=== PATIENT | female | born 1955 | race Caucasian/White ===

== ENCOUNTER → 2016-09-14 | Outpatient (CLI) | payer BC ==
[~2016-09-14] MED LIST: AMLO5TAB2; ASCO500C14; BYETTA; DICL75TA2 PO; ENOX100D9; FERR-57; FLT05NA16; LORA1TAB16; NAPR-243 PO; OXYC-12; PRED20TA PO; TRIA1TAB3 PO; WRF1T
== END ==
LOC: LAB 14:23
PROVIDERS: ATTEND Nurse Practitioner Family
DX: N30.01 Acute cystitis with hematuria (principal)
CPT/HCPCS: 87077; 87088; 87186

== ENCOUNTER 2016-12-28 04:48 | Emergency (ER) | payer BC ==
[~2016-12-28] VITALS: Ht 170.2 cm; Wt 90.7 kg
[2016-12-28 05:28] LABS: BASOPHILS # (AUTO) 0.1 10^3/uL (0.0-0.1); BASOPHILS % (AUTO) 1 % (0-10); EOSINOPHILS # (AUTO) 0.4 10^3/uL (0.0-0.3); EOSINOPHILS % (AUTO) 5 % (0-10); LYMPHOCYTES # (AUTO) 1.9 X 10^3 (1.0-4.0); LYMPHOCYTES % (AUTO) 27 % (12-44); MEAN CORPUSCULAR HEMOGLOBIN 26 PG (25-34); MEAN CORPUSCULAR HGB CONC 33 G/DL (32-36); MEAN CORPUSCULAR VOLUME 81 FL (80-99); MEAN PLATELET VOLUME 10.7 FL (7.4-10.4); MONOCYTES # (AUTO) 0.6 X 10^3 (0.0-1.0); MONOCYTES % (AUTO) 8 % (0-12); NEUTROPHILS # (AUTO) 4.1 X 10^3 (1.8-7.8); NEUTROPHILS % (AUTO) 58 % (42-75); PLATELET COUNT 242 10^3/uL (130-400); RED BLOOD COUNT 5.24 10^6/uL (4.35-5.85); RED CELL DISTRIBUTION WIDTH 14.8 % (10.0-14.5); WHITE BLOOD COUNT 7.1 10^3/uL (4.3-11.0)
[2016-12-28 05:48] LABS: ANION GAP 13 MMOL/L (5-14); BLOOD UREA NITROGEN 16 MG/DL (7-18); BUN/CREATININE RATIO 20; CALCIUM 9.1 MG/DL (8.5-10.1); CARBON DIOXIDE 19 MMOL/L (21-32); CHLORIDE 110 MMOL/L (98-107); GFR ESTIMATED > 60; GLUCOSE 109 MG/DL (70-105); MAGNESIUM 2.3 MG/DL (1.8-2.4); SODIUM 142 MMOL/L (135-145)
[2016-12-28 06:09] LABS: TROPONIN I < 0.30 NG/ML (<0.30)
--- NOTE | 2016-12-28 06:10 | ED Cardiac General ---
History of Present Illness General Chief Complaint: Cardiac/General Problems Stated Complaint: HIGH HEART RATE Nursing Triage Note: Patient reports heart beating fast since Friday a.m. Brought to ED 7 and heart rate NSR 78-82 on monitor. No chest pain reported. Pt reports increased stress. Source: patient Exam Limitations: no limitations History of Present Illness Time seen by provider: 04:49 Initial Comments This 61-year-old woman presents to the emergency room with complaints of rapid heart rate that started yesterday. She denies pain, nausea, lightheadedness, shortness of breath, etc. She denies any use of stimulants, tobacco, or illicit substances. Heart rate is noted to be in the 80s and sinus on the monitor. 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 Allergies and Home Medications Allergies Coded Allergies: No Known Drug Allergies (Unverified , 09/09/09) Home Medications Sulfamethoxazole/Trimethoprim 1 Each Tablet, 1 EACH PO BID, #14 Prescribed by: LAYLA WALTON on 12/28/16 0643 Review of Systems Constitutional: no symptoms reported EENTM: No Symptoms Reported Respiratory: No Symptoms Reported Cardiovascular: See HPI Gastrointestinal: No Symptoms Reported Genitourinary: No Symptoms Reported Musculoskeletal: no symptoms reported Skin: no symptoms reported Psychiatric/Neurological: No Symptoms Reported Endocrine: No Symptoms Reported Hematologic/Lymphatic: No Symptoms Reported Past Toxmiig-Eptoee-Nstpzv Hx Patient Social History Alcohol Use: Denies Use Recreational Drug Use: No Smoking Status: Never a Smoker Recent Foreign Travel: No Contact w/Someone Who Travel: No Recent Infectious Disease Expo: No Recent Hopitalizations: Yes Seasonal Allergies Seasonal Allergies: No Surgeries History of Surgeries: Yes (, GALLBLADDER REMOVED/VENA CAVA FILTER) Surgeries: Section, Gallbladder, Hysterectomy Respiratory History of Respiratory Disorde: Yes Respiratory Disorders: Pulmonary Embolism Cardiovascular History of Cardiac Disorders: Yes Cardiac Disorders: Deep Vein Thrombosis, Hypertension Neurological History of Neurological Disord: No Reproductive System Hx Reproductive Disorders: No Genitourinary History of Genitourinary Disor: No Gastrointestinal History of Gastrointestinal Di: No Musculoskeletal History of Musculoskeletal Dis: Yes Musculoskeletal Disorders: Osteoporosis Endocrine History of Endocrine Disorders: No HEENT History of HEENT Disorders: No Cancer History of Cancer: No Psychosocial History of Psychiatric Problem: No Integumentary History of Skin or Integumenta: No Blood Transfusions History of Blood Disorders: No Family Medical History Significant Family History: No Pertinent Family Hx Physical Exam Vital Signs Vital Sign - Last 12Hours 12/28/16 12/28/16 04:52 07:18 Temp 96.9 Pulse 82 Resp 16 B/P (MAP) 166/93 Pulse Ox 97 O2 Delivery Room Air Capillary Refill : Less Than 3 Seconds General Appearance: No Apparent Distress, WD/WN HEENT: PERRL/EOMI, Normal ENT Inspection, Pharynx Normal Neck: Normal Inspection Respiratory: Lungs Clear, Normal Breath Sounds, No Accessory Muscle Use, No Respiratory Distress Cardiovascular: Regular Rate, Rhythm, No Edema, No Murmur Gastrointestinal: Normal Bowel Sounds, Non Tender, Soft Extremity: Normal Inspection, Non Tender, No Calf Tenderness, No Pedal Edema, Other (Negative Isma) Neurologic/Psychiatric: Alert, Oriented x3, No Motor/Sensory Deficits, Normal Mood/Affect, hole digger II-XII Norm as Tested Skin: Normal Color, Warm/Dry Progress/Results/Core Measures Results/Orders Lab Results Laboratory Tests Test 12/28/16 05:18 12/28/16 06:05 Range/Units White Blood Count 7.1 4.3-11.0 10^3/uL Red Blood Count 5.24 4.35-5.85 10^6/uL Hemoglobin 13.7 11.5-16.0 G/DL Hematocrit 42 35-52 % Mean Corpuscular Volume 81 80-99 FL Mean Corpuscular Hemoglobin 26 25-34 PG Mean Corpuscular Hemoglobin Concent 33 32-36 G/DL Red Cell Distribution Width 14.8 H 10.0-14.5 % Platelet Count 242 130-400 10^3/uL Mean Platelet Volume 10.7 H 7.4-10.4 FL Neutrophils (%) (Auto) 58 42-75 % Lymphocytes (%) (Auto) 27 12-44 % Monocytes (%) (Auto) 8 0-12 % Eosinophils (%) (Auto) 5 0-10 % Basophils (%) (Auto) 1 0-10 % Neutrophils # (Auto) 4.1 1.8-7.8 X 10^3 Lymphocytes # (Auto) 1.9 1.0-4.0 X 10^3 Monocytes # (Auto) 0.6 0.0-1.0 X 10^3 Eosinophils # (Auto) 0.4 H 0.0-0.3 10^3/uL Basophils # (Auto) 0.1 0.0-0.1 10^3/uL Sodium Level 142 135-145 MMOL/L Potassium Level 4.0 3.6-5.0 MMOL/L Chloride Level 110 H 98-107 MMOL/L Carbon Dioxide Level 19 L 21-32 MMOL/L Anion Gap 13 5-14 MMOL/L Blood Urea Nitrogen 16 7-18 MG/DL Creatinine 0.80 0.60-1.30 MG/DL Estimat Glomerular Filtration Rate > 60 BUN/Creatinine Ratio 20 Glucose Level 109 H 70-105 MG/DL Calcium Level 9.1 8.5-10.1 MG/DL Magnesium Level 2.3 1.8-2.4 MG/DL Troponin I < 0.30 <0.30 NG/ML TSH [place] Testing 3.11 0.35-4.94 UIU/ML Urine Color YELLOW Urine Clarity SLIGHTLY CLOUDY Urine pH 6 5-9 Urine Specific [place] 1.015 L 1.016-1.022 Urine Protein NEGATIVE NEGATIVE Urine Glucose (UA) NEGATIVE NEGATIVE Urine Ketones NEGATIVE NEGATIVE Urine Nitrite POSITIVE H NEGATIVE Urine Bilirubin NEGATIVE NEGATIVE Urine Urobilinogen NORMAL NORMAL MG/DL Urine Leukocyte Esterase 2+ H NEGATIVE Urine RBC (Auto) 2+ H NEGATIVE Urine RBC NONE /HPF Urine WBC 25-50 H /HPF Urine Squamous Epithelial Cells 2-5 /HPF Urine Crystals NONE /LPF Urine Bacteria LARGE H /HPF Urine Casts NONE /LPF Urine Mucus NEGATIVE /LPF Urine Culture Indicated YES Micro Results Microbiology 12/28/16 Urine Culture - Preliminary, Resulted Gram Negative Scooter My Orders Orders - LAYLA ZAPATA MD Basic Metabolic Panel (12/28/16 05:03) Cbc With Automated Diff (12/28/16 05:03) Magnesium (12/28/16 05:03) Thyroid Analyzer (12/28/16 05:03) Troponin I (12/28/16 05:03) Ua Culture If Indicated (12/28/16 05:03) Chest Pa/Lat (2 View) (12/28/16 05:03) Saline Lock/Iv-Start (12/28/16 05:03) Ekg Tracing (12/28/16 05:03) Monitor-Rhythm Ecg Trace Only (12/28/16 05:03) Urine Culture (12/28/16 06:05) Ceftriaxone Injection (Rocephin Injectio (12/28/16 06:45) Vital Signs/I&O Vital Sign - Last 12Hours 12/28/16 12/28/16 04:52 07:18 Temp 96.9 96.9 Pulse 82 82 Resp 16 16 B/P (MAP) 166/93 Pulse Ox 97 O2 Delivery Room Air Room Air Blood Pressure Mean: 117 Progress Note : Progress Note No evidence of tachycardia or arrhythmia was found on EKG, telemetry, or exam. Patient was found to have a significant urinary tract infection by urinalysis. A gram of Rocephin was administered for initial therapy. ECG Initial ECG Impression Date: Dec 28, 2016 Initial ECG Impression Time: 05:06 Initial ECG Rate: 72 Initial ECG Rhythm: Normal Sinus Initial ECG Intervals: Normal Initial ECG Impression: Normal Comment Normal sinus rhythm no ST elevation or depression. No abnormal intervals or axis deviation. Diagnostic Imaging Diagonstic Imaging: Xray Plain Films/CT/US/NM/MRI: chest Comments Two-view chest x-ray viewed by me. Report not yet available. No acute abnormalities appreciated. Departure Impression Impression: Primary Impression: Urinary tract infection Qualified Codes: N39.0 - Urinary tract infection, site not specified Additional Impression: Palpitations Disposition: 01 HOME, SELF-CARE Condition: Improved Departure-Patient Inst. Decision time for Depature: 06:41 Referrals: DAMI CARVER DO (PCP/Family) Primary Care Physician Patient Instructions: Palpitations (DC), Urinary Tract Infections in Adults Add. Discharge Instructions: Drink plenty of clear liquids. Complete your antibiotics as prescribed. Follow -up with your primary care provider on Friday or Friday to review urine culture results. Ask your primary care provider if he or she feels any further workup is warranted due to your frequent bladder infections. To help prevent future urinary tract infections, drink plenty of clear liquids, wipe front to back, and urinate after intercourse. Return to care if symptoms worsen. All discharge instructions reviewed with patient and/or family. Voiced understanding. Scripts Sulfamethoxazole/Trimethoprim (Bactrim Ds Tablet) 1 Each Tablet 1 EACH PO BID, #14 TAB Prov: LAYLA ZAPATA MD 12/28/16 LAYLA ZAPATA MD Dec 28, 2016 6:10 am
[2016-12-28 06:19] LABS: BILIRUBIN,URINE NEGATIVE (NEGATIVE); KETONES,URINE NEGATIVE (NEGATIVE); LEUKOCYTE ESTERASE ,URINE 2+ (NEGATIVE); NITRITE,URINE POSITIVE (NEGATIVE); PH,URINE 6 (5-9); PROTEIN,URINE NEGATIVE (NEGATIVE); UROBILINOGEN,URINE NORMAL (NORMAL)
[2016-12-28 06:29] LABS: WBC,URINE 25-50 /HPF
[2016-12-28] MEDS ORDERED: SULF1TAB35 PO (06:43)
[2016-12-28] MEDS ORDERED: cefTRIAXone INJECTION 1,000 MG in NS (IVPB) 50 ML IV ONE (06:45)
--- NOTE | 2016-12-28 07:04 | Diagnostic Imaging Report ---
INDICATION: Heart palpitations for 2 days EXAMINATION: PA and lateral views of the chest. FINDINGS: The heart size and vascularity are normal. Lungs are clear. There is no effusion. There is no acute bony abnormality. IMPRESSION: No acute abnormality is seen. There is no change from 07/15/11. Dictated by: Dictated on workstation # [id number]
[2016-12-28 07:18] VITALS: BP 155/89
--- OUTSIDE RECORDS SUMMARY | 2016-12-30 09:07 | XMS REPORT | Clinical Summary ---
Author Author [facility] Organization [facility] Address Unknown Phone Unavailable Care Team Providers Care Clinical Neuropsychologist Name Role Phone PCP Unavailable Source Comments Some departments are not documenting in the electronic medical record. If you do not see the information that you expected, contact Release of Information in the Health Information Management department at [phone] for further assistance in locating additional records.[facility] Allergies No Known Allergies Current Medications Prescription Sig. Disp. Refills Start End Date Status Date oxycodone/acetaminophen Take 1-2 Tabs by mouth 30 Tab 1 12/16/19 Active (PERCOCET) 5/325 mg Every 4-6 Hours as needed 10 tablet for Pain. warfarin (COUMADIN) 1 mg Take 7 Tabs by mouth At 60 Tab 1 12/16/19 Active tablet Bedtime Daily. Dose: 7 mg 10 po daily. Indication: b/l PE/DVTs 08/2009. enoxaparin (LOVENOX) 100 Inject 1 mL into area(s) 30 Syringe 6 Active mg Syrg as directed Twice Daily. 10 ferrous sulfate 325 mg Take 1 Tab by mouth 270 Tab 1 12/16/19 Active (65 mg Iron) tablet Daily. 10 docusate (COLACE) 100 mg Take 1 Cap by mouth Every 60 Cap 1 12/16/19 Active capsule 12 Hours as needed for 10 Constipation. warfarin (COUMADIN) 6 mg Take 1 Tab by mouth 30 Tab 3 12/16/19 Active tablet Daily. 10 warfarin (COUMADIN) 1 mg Take 1 Tab by mouth 30 Tab 3 12/16/19 Active tablet Daily. 10 Active Problems Problem Noted Date DVT (deep venous thrombosis) (HCC) 09/04/2009 Anemia 09/04/2009 Uterine fibroid 09/04/2009 Pulmonary embolism (HCC) 08/27/2009 Menorrhagia 08/27/2009 Anemia associated with acute blood loss 08/27/2009 Family History Medical History Relation Name Comments Cancer Father Rubin Prasad Diabetes Mother Rosa Prasad Hypertension Mother Rosa Prasad Relation Name Status Comments Father Rubin Prasad Alive Mother Rosa Prasad Alive Social History Tobacco Use Types Packs/Day Years Used Date Never Smoker Alcohol Use Drinks/Week oz/Week Comments No Sex Assigned at Date Recorded Not on file Last Filed Vital Signs Vital Sign Reading Time Taken Blood Pressure 157/83 12/15/2009 12:00 PM CDT Pulse 83 12/15/2009 12:00 PM CDT Temperature 37.1 C (98.7 F) 12/15/2009 12:00 PM CDT Respiratory Rate - - Oxygen Saturation 98% 12/15/2009 12:00 PM CDT Inhaled Oxygen - - Concentration Weight 106.5 kg (234 lb 12.8 oz) 12/15/2009 4:25 AM CDT Height 170.2 cm (5' 7") 12/13/2009 2:00 PM CDT Body Mass Index 36.77 12/15/2009 4:25 AM CDT Plan of Treatment Health Maintenance Due Date Last Done Comments HEPATITIS C SCREENING 1957 PHYSICAL (COMPREHENSIVE) 1964 EXAM PERTUSSIS VACCINE 1968 TETANUS VACCINE 1974 CERVICAL CANCER SCREENING 09/15/1987 BREAST CANCER SCREENING 1997 COLORECTAL CANCER 09/15/2007 SCREENING INFLUENZA VACCINE 01/03/2017 Results Not on filefrom Last 3 Months
--- OUTSIDE RECORDS SUMMARY | 2016-12-30 09:11 | XMS REPORT | Clinical Summary ---
Author Author User, [facility] Address Unknown Phone Allergies, Adverse Reactions, Alerts Allergy Name Reaction Description Start Date Severity Status Provider No Known Allergies Vince Quinten Conditions or Problems Problem Name Problem Code Onset Date Status Entry Date Provider Comment Standard Description Annotate ANEMIA NOS 285.9 Resolved Judi Miles Anemia, unspecified COUMADIN THERAPY V58.61 Resolved Judi Miles Long-term (current) use of anticoagulants PE 415.19 Active Judi Miles Other pulmonary embolism and infarction DVT 451.19 Active Judi Miles Phlebitis and thrombophlebitis of other deep vessels of lower extremities HYPERTENSION 401.1 Active Judi Miles Benign essential hypertension MUSCLE PAIN 729.1 Resolved Judi Miles Myalgia and myositis, unspecified SINUSITIS, SPHENOIDAL, ACUTE 461.3 Resolved Judi Miles Acute sphenoidal sinusitis EPISTAXIS 784.7 Resolved Judi Miles Epistaxis LEG PAIN, BILATERAL 729.5 Resolved Judi iMles Pain in limb ANEMIA, IRON DEFICIENCY 280.9 Active Judi Miles Iron deficiency anemia, unspecified FACTOR VIII DISORDER, 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 HEALTH SCREENING V70.0 Resolved Judi Miles Routine general medical examination at a health care facility PNEUMONIA 486 Resolved Judi Miles Pneumonia, organism unspecified NEUROPATHY, IDIOPATHIC PERIPHERAL 356.9 Active Judi Miles Unspecified idiopathic peripheral neuropathy PAIN IN THORACIC SPINE 724.1 Resolved Judi Miles Pain in thoracic spine WHEEZING 786.07 Resolved Judi Miles Wheezing EASY BRUISABILITY 924.9 Resolved Judi Miles Contusion of unspecified site CHEST PAIN, ATYPICAL 786.59 Resolved Judi Miles Other chest pain BRONCHITIS 490 Resolved Judi Miles Bronchitis, not specified as acute or chronic SINUSITIS, SPHENOIDAL, ACUTE 461.3 Resolved Judi Miles Acute sphenoidal sinusitis WHEEZING 786.07 Resolved Judi Miles Wheezing WEIGHT GAIN, ABNORMAL 783.1 Active Judi Miles Abnormal weight gain HYPERGLYCEMIA, MILD 790.6 Active Denisse Alvares Other abnormal blood chemistry SINUSITIS, SPHENOIDAL, ACUTE 461.3 Resolved Judi Miles Acute sphenoidal sinusitis Medication List Medication Instructions Start Date Stop Date Generic Name NDC Status Provider Patient Instruction CELEBREX 200 MG CAPS 1 po qd CELECOXIB 19060444209 No Longer Active Judi Miles NORVASC 5 MG TAB 1 PO QD AMLODIPINE BESYLATE 36211392255 No Longer Active Judi Miles BYETTA 10 MCG PEN 10 MCG/0.04ML SOPN 10mcg injection BID EXENATIDE 69971437234 Active Judi Miles CAT PEN NEEDLES 31G X 8 [place] [facility] [place] INSULIN PEN NEEDLE 68384524150 Active Judijackeline Miles PHENTERMINE HCL 37.5 MG CAPS 1 PO Daily PHENTERMINE HCL 43536287269 No Longer Active Judi Miles IMITREX 50 MG TAB 1 PO at first sign of head aches SUMATRIPTAN SUCCINATE 12136660570 No Longer Active Judijackeline Miles FLUTICASONE PROPIONATE 50 MCG/ACT SUSP 2 puffs each nostril daily FLUTICASONE PROPIONATE 60027772492 Active Judijackeline Miles CONTRAVE 8-90 MG [id number] 1 PO DAILY X ONE WEEK, THEN ONE PO BID NALTREXONE-BUPROPION HCL 38906894740 No Longer Active Judi Miles LASIX 20 MG TAB 1 PO daily prn swelling FUROSEMIDE 31854840129 Active Denisse Alvares FLUTICASONE PROPIONATE 50 MCG/ACT SUSP 2 puffs each nostril daily FLUTICASONE PROPIONATE 85374405263 No Longer Active Judi Miles HYDROXYZINE HCL 25 MG TAB 1 PO TID prn nasal drainage. HYDROXYZINE HCL 03391173069 No Longer Active Judi Miles PREDNISONE 10 MG TAB 1 PO BID for 5 days PREDNISONE 55654080479 No Longer Active Judi Miles ATROVENT 0.06 % SOLN 2 puffs each nostril TID prn runny nose 2014 IPRATROPIUM BROMIDE 60218688885 No Longer Active Judi COLLADO'S NASAL SPRAY (DEXAMETHASONE, GENTAMICIN, SALINE) 2 puffs each nostril TID for [address] COLLADO'Vince NASAL SPRAY ( DEXAMETHASONE, GENTAMICIN, SALINE) No Longer Active Judi Miles CEFDINIR 300 MG CAPS 1 PO BID CEFDINIR 84525143918 No Longer Active Judi Miles CEFDINIR 300 MG CAPS 1 PO BID CEFDINIR 40675107283 No Longer Active Laura Hamilton CEFDINIR 300 MG CAPS 1 PO BID CEFDINIR 76267618718 No Longer Active Judijackeline Miles PREDNISONE 20 MG TAB 2 pills at once for 2 days then 1 pill daily for 2 days PREDNISONE 51826980046 No Longer Active Judi Jennifer Miles PROAIR HFA 108 (90 BASE) MCG/ACT AERS 2 puff Q4 hrs prn wheezing ALBUTEROL SULFATE 20904591575 Active Judi Jennifer Miles SYMBICORT 160-4.5 MCG/ACT AERO 2 puffs BID BUDESONIDE- FORMOTEROL FUMARATE 41396976115 Active Judi Jennifer Miles CYMBALTA 60 MG CPEP 1 PO daily DULOXETINE HCL 58443810134 No Longer Active Judijackeline Miles BACTRIM DS 800-160 MG TAB 1 PO BID TRIMETHOPRIM- SULFAMETHOXAZOLE 28414854544 No Longer Active Denisse Alvares VENTOLIN HFA 108 (90 BASE) MCG/ACT AERS 2 puffs Q4hrs prn wheezing ALBUTEROL SULFATE 57749865928 No Longer Active Judi Jennifer Miles SYMBICORT 80-4.5 MCG/ACT AERO 2 puffs BID BUDESONIDE- FORMOTEROL FUMARATE 22089108247 No Longer Active Judijackeline Miles LORTAB 5 5-500 MG TABS 1 to 2 PO Q6hrs prn ACETAMINOPHEN-HYDROCODONE 77670489019 No Longer Active Judijackeline Miles VOLTAREN 75 MG EC TAB 1 PO BID DICLOFENAC SODIUM No Longer Active Judi Jennifer Miles FLEXERIL 10 MG TAB 1 PO TID prn CYCLOBENZAPRINE HCL 06882229624 No Longer Active Judi Jennifer Miles CELEXA 40 MG TABS 1 PO Daily CITALOPRAM HYDROBROMIDE 58791465429 No Longer Active Judi Jennifer Miles MIDRIN 325-100-65 MG CAP 1 PO prn Migraine headaches [id number] 50702406182 No Longer Active Judi Jennifer Miles MULTIVITAMINS TABS 1 PO QD MULTIPLE VITAMIN 37522056151 No Longer Active Judi Jennifer Miles FERROUS SULFATE 325 (65 FE) MG TABS 1 PO Daily FERROUS SULFATE 49426012944 No Longer Active Judi Jennifer Miles DYAZIDE 37.5-25 MG CAP 1 PO Daily TRIAMTERENE-HCTZ 54802306002 No Longer Active Judi Jennifer Miles NORVASC 5 MG TAB 1 PO QD AMLODIPINE BESYLATE 91547030579 No Longer Active Judi Jennifer Miles PREDNISONE 20 MG TAB 2 pills at once for 3 days then 1 pill daily for 3 days PREDNISONE 38171751264 No Longer Active Lacy Smith LEVAQUIN 500 MG TAB 1 PO QD LEVOFLOXACIN 75400633009 No Longer Active Lacy Smith VOLTAREN 75 MG EC TAB 1 PO BID DICLOFENAC SODIUM No Longer Active Judi Jennifer Miles LORTAB 5 5-500 MG TABS 1 to 2 PO Q6hrs prn ACETAMINOPHEN-HYDROCODONE 20494341013 No Longer Active Judi Jennifer Miles PROZAC 40 MG CAPS 1 po daily FLUOXETINE HCL 57306897561 No Longer Active Judi Jennifer Miles LOVENOX 100 MG/ML SOLN 1 injection BID ON HOLD ENOXAPARIN SODIUM 17160873194 No Longer Active Judi Jennifer Miles COUMADIN 1 MG TABS 9 tabs po at HS WARFARIN SODIUM 46140411459 No Longer Active Judi Miles SUDAFED 30 MG TAB 1 PO BID PSEUDOEPHEDRINE HCL 58782822369 No Longer Active Judi COPE NASAL SPRAY (DEXAMETHASONE, GENTAMICIN, SALINE) 2 puffs each nostril TID for [address] COPE NASAL SPRAY ( DEXAMETHASONE, GENTAMICIN, SALINE) No Longer Active Judi Miles CEFTIN 500 MG TABS 1 PO BID for 2 weeks CEFUROXIME AXETIL 07286953414 No Longer Active Judi Miles CEFTIN 500 MG TABS 1 PO BID CEFUROXIME AXETIL 09813085719 No Longer Active Judi COPE NASAL SPRAY (DEXAMETHASONE, GENTAMICIN, SALINE) 2 puffs each nostril TID for [address] COPE NASAL SPRAY ( DEXAMETHASONE, GENTAMICIN, SALINE) No Longer Active Judi Miles AUGMENTIN 875-125 MG TAB 1 PO BID AMOXICILLIN-POT CLAVULANATE 23818104286 No Longer Active Judi Miles Vital Signs Date Name Value Unit Range Description blood pressure, diastolic - 8462-4 78 mm[Hg] BP carranza blood pressure, systolic - 8480-6 140 mm[Hg] BP sys pulse rate E&M - 8867-4 66 /min Heart rate respiratory rate E&M - 9279-1 14 /min Resp rate weight E&M - 3141-9 239 [lb_av] Weight Measured blood pressure, diastolic - 8462-4 90 mm[Hg] BP carranza blood pressure, systolic - 8480-6 163 mm[Hg] BP sys pulse rate E&M - 8867-4 80 /min Heart rate respiratory rate E&M - 9279-1 14 /min Resp rate temperature E&M 98.6 [degF] Body temperature weight E&M - 3141-9 235 [lb_av] Weight Measured blood pressure, diastolic - 8462-4 96 mm[Hg] BP carranza blood pressure, systolic - 8480-6 148 mm[Hg] BP sys pulse rate E&M - 8867-4 102 /min Heart rate respiratory rate E&M - 9279-1 14 /min Resp rate temperature E&M 98.6 [degF] Body temperature weight E&M - 3141-9 235 [lb_av] Weight Measured blood pressure, diastolic - 8462-4 83 mm[Hg] BP carranza blood pressure, systolic - 8480-6 135 mm[Hg] BP sys pulse rate E&M - 8867-4 72 /min Heart rate respiratory rate E&M - 9279-1 14 /min Resp rate temperature E&M 98.3 [degF] Body temperature weight E&M - 3141-9 231 [lb_av] Weight Measured blood pressure, diastolic - 8462-4 76 mm[Hg] BP carranza blood pressure, systolic - 8480-6 124 mm[Hg] BP sys pulse rate E&M - 8867-4 78 /min Heart rate respiratory rate E&M - 9279-1 14 /min Resp rate weight E&M - 3141-9 250 [lb_av] Weight Measured blood pressure, diastolic - 8462-4 76 mm[Hg] BP carranza blood pressure, systolic - 8480-6 130 mm[Hg] BP sys pulse rate E&M - 8867-4 70 /min Heart rate respiratory rate E&M - 9279-1 14 /min Resp rate weight E&M - 3141-9 258 [lb_av] Weight Measured blood pressure, diastolic - 8462-4 80 mm[Hg] BP carranza blood pressure, systolic - 8480-6 140 mm[Hg] BP sys pulse rate E&M - 8867-4 78 /min Heart rate respiratory rate E&M - 9279-1 14 /min Resp rate temperature E&M 98.4 [degF] Body temperature weight E&M - 3141-9 260 [lb_av] Weight Measured blood pressure, diastolic - 8462-4 75 mm[Hg] BP carranza blood pressure, systolic - 8480-6 135 mm[Hg] BP sys pulse rate E&M - 8867-4 84 /min Heart rate respiratory rate E&M - 9279-1 14 /min Resp rate temperature E&M 99.3 [degF] Body temperature weight E&M - 3141-9 255 [lb_av] Weight Measured blood pressure, diastolic - 8462-4 80 mm[Hg] BP carranza blood pressure, systolic - 8480-6 140 mm[Hg] BP sys pulse rate E&M - 8867-4 72 /min Heart rate respiratory rate E&M - 9279-1 14 /min Resp rate temperature E&M 98.6 [degF] Body temperature weight E&M - 3141-9 250 [lb_av] Weight Measured blood pressure, diastolic - 8462-4 90 mm[Hg] BP carranza blood pressure, systolic - 8480-6 130 mm[Hg] BP sys height E&M - 8302-2 67 [in_us] Bdy height pulse rate E&M - 8867-4 60 /min Heart rate respiratory rate E&M - 9279-1 14 /min Resp rate temperature E&M 98.6 [degF] Body temperature weight E&M - 3141-9 250 [lb_av] Weight Measured blood pressure, diastolic - 8462-4 80 mm[Hg] BP carranza blood pressure, systolic - 8480-6 160 mm[Hg] BP sys pulse rate E&M - 8867-4 80 /min Heart rate respiratory rate E&M - 9279-1 14 /min Resp rate temperature E&M 98.6 [degF] Body temperature weight E&M - 3141-9 250 [lb_av] Weight Measured Diagnostic Results Date Name Value Unit Range Description Clinical Lists Update: CBC,CMP,CHOL,TRIG,HGA1C - Chemistry Estimated Glomerular Filtration Rate (calc) >60 mL/min/1.73m2 albumin, serum 4.0 g/dL sodium, serum 142 mmol/L triglyceride, serum, fasting 100 mg/dL bilirubin, serum, total 0.6 mg/dL alanine aminotransferase (SGPT), serum 17 U/L aspartate aminotransferase (SGOT), serum 17 U/L protein, total, serum 7.8 g/dL potassium, serum 4.2 mmol/L hemoglobin A1C, blood, as % of total hemoglobin 6.2 % creatinine, serum 0.85 mg/dL carbon dioxide, venous blood 25 mmol/L cholesterol, serum 196 mg/dL chloride, serum 109 mmol/L calcium, serum 9.0 mg/dL urea nitrogen, blood 14 mg/dL alkaline phosphatase, serum 128 U/L glucose, plasma fasting 100 mg/dL Clinical Lists Update: CBC,CMP,CHOL,TRIG,HGA1C - Hematology hemoglobin, blood 14.7 g/dL hematocrit, blood 45 % platelet count 273 10*3/mm3 erythrocyte (RBC) count 5.64 10*6/mm3 leukocyte count, blood 6.0 10*3/mm3 mean corpuscular volume, RBC 79 fL red blood cell distribution width 14.4 % Clinical Lists Update: CBC,CMP,FLP,TSH,HgA1c,PT,INR - Chemistry aspartate aminotransferase (SGOT), serum 20 U/L Estimated Glomerular Filtration Rate (calc) >60 mL/min/1.73m2 potassium, serum 3.8 mmol/L LDL cholesterol, serum 150 mg/dL thyroid stimulating hormone, serum 2.60 u[iU]/mL hemoglobin A1C, blood, as % of total hemoglobin 6.4 % HDL cholesterol, serum 45 mg/dL creatinine, serum 0.78 mg/dL carbon dioxide, venous blood 25 mmol/L cholesterol, serum 222 mg/dL chloride, serum 105 mmol/L calcium, serum 9.2 mg/dL urea nitrogen, blood 18 mg/dL alkaline phosphatase, serum 127 U/L albumin, serum 4.2 g/dL protein, total, serum 7.3 g/dL glucose, plasma fasting 92 mg/dL alanine aminotransferase (SGPT), serum 26 U/L bilirubin, serum, total 0.5 mg/dL triglyceride, serum, fasting 202 mg/dL sodium, serum 140 mmol/L very low density lipoproteins 40 mg/dL Clinical Lists Update: CBC,CMP,FLP,TSH,HgA1c,PT,INR - Coagulation prothrombin time (patient) 12.1 s international normalized ratio (INR) 0.9 Clinical Lists Update: CBC,CMP,FLP,TSH,HgA1c,PT,INR - Hematology red blood cell distribution width 15.0 % mean corpuscular volume, RBC 79 fL leukocyte count, blood 7.3 10*3/mm3 erythrocyte (RBC) count 5.31 10*6/mm3 platelet count 276 10*3/mm3 hemoglobin, blood 13.9 g/dL hematocrit, blood 42 % erythrocyte sedimentation rate 10 mm/h Clinical Lists Update: UA - Urinalysis bacteria, urine microscopy large protein, urine, semiquantitative (dipstick) neg epithelial cells, urine 5-10 /[LPF] mucus on urinalysis small blood in urine (hemoglobin) by dipstick 1+ RBC urine by microscopy none WBC urine on microscopy 2-5 {Cells}/[HPF] appearance, urine Cloudy Yellow urobilinogen, urine, semiquantitative (dipstick) normal specific gravity, urine 1.020 pH, urine, semiquantitative 6 nitrite, urine, semiquantitative positive ketones, urine, by test strip neg bilirubin, urine neg glucose, urine, semiquantitative neg hyaline casts, urine none /[LPF] Office Visit: Dr Miles's Check Up: Established Patient Visit - Chemistry triglyceride, serum, fasting 140 mg/dL sodium, serum 143 mmol/L very low density lipoproteins 28 mg/dL glucose, plasma fasting 98 mg/dL Estimated Glomerular Filtration Rate (calc) >60 mL/min/1.73m2 bilirubin, serum, total 0.6 mg/dL albumin, serum 4.2 g/dL alkaline phosphatase, serum 129 U/L urea nitrogen, blood 15 mg/dL calcium, serum 9.0 mg/dL chloride, serum 111 mmol/L cholesterol, serum 200 mg/dL alanine aminotransferase (SGPT), serum 11 U/L aspartate aminotransferase (SGOT), serum 16 U/L protein, total, serum 7.3 g/dL potassium, serum 4.1 mmol/L LDL cholesterol, serum 137 mg/dL hemoglobin A1C, blood, as % of total hemoglobin 6.2 % HDL cholesterol, serum 3.9 mg/dL creatinine, serum 0.80 mg/dL carbon dioxide, venous blood 24 mmol/L Office Visit: Dr Miles's Check Up: Established Patient Visit - Hematology leukocyte count, blood 6.8 10*3/mm3 mean corpuscular volume, RBC 80 fL red blood cell distribution width 14.6 % hemoglobin, blood 14.0 g/dL platelet count 276 10*3/mm3 erythrocyte (RBC) count 5.35 10*6/mm3 hematocrit, blood 43 % Encounters Code Encounter Date Provider Facility CPT-06107 Ofc Vst, Est Level IV 14:47:13 CDT Judi Miles DO, FACP CPT-97443 Ofc Vst, Est Level III 21:03:41 CDT Judi Miles DO, FACP CPT-08941 Ofc Vst, Est Level III 14:07:38 CDT Judi Miles DO, FACP CPT-69468 Ofc Vst, Est Level III 14:23:11 CDT Judi Miles DO, FACP CPT-31991 Ofc Vst, Est Level IV 20:37:57 CDT Judi Miles DO, FACP CPT-39499 Ofc Vst, Est Level IV 16:43:29 [employer]CIAL SERVICES [employer] Judi Miles DO, FACP CPT-67994 Ofc Vst, Est Level IV 17:39:29 FIN[employer]CIAL SERVICES AGENT Judi Clarke Miles, DO, FACP CPT-36154 Ofc Vst, Est Level IV 15:43:22 FINANCIAL SERVICES AGENT Judi Clarke Miles, DO, FACP CPT-80807 Ofc Vst, Est Level IV 16:37:19 FINANCIAL SERVICES AGENT Judi Jennifer Clarke Miles, DO, FACP CPT-49279 Ofc Vst, Est Level IV 15:34:14 FINANCIAL SERVICES AGENT Judi Jennifer [facility] CPT-30553 Ofc Vst, Est Level III 11:04:09 CDT Judijackeline Clarke Miles, DO, FACP CPT-22367 Ofc Vst, Est Level IV 13:37:07 CDT Judi Jennifer Clarke Miles, DO, FACP CPT-21332 Ofc Vst, Est Level IV 15:29:52 CDT Judi Jennifer Clarke Miles, DO, FACP CPT-40251 Ofc Vst, Est Level IV 15:08:19 FIN[employer]CIAL SERVICES AGENT Judi Clarke Miles, DO, FACP CPT-00921 Ofc Vst, Est Level IV 12:04:17 FIN[employer]CIAL SERVICES AGENT Judi Clarke Miles, DO, FACP CPT-20879 Ofc Vst, Est Level IV 11:15:55 FINANCIAL SERVICES AGENT Judi Clarke Miles, DO, FACP CPT-82017 Ofc Vst, Est Level IV 11:19:09 FINANCIAL SERVICES AGENT Judi Clarke Miles, DO, FACP CPT-71752 Ofc Vst, Est Level III 11:47:15 CDT Judijackeline Clarke Miles, DO, FACP CPT-45137 Ofc Vst, Est Level IV 12:05:18 CDT Judi Jennifer Miles DO, FACP CPT-14267 Ofc Vst, Est Level IV 11:49:01 CDT Judi Miles DO, FACP CPT-01026 Ofc Vst, New Level IV 09:21:07 CDT Judi [facility] Procedures Code Procedure Name Date Entry Date Standard Description CPT-35794 EKG w/ Interpretation 16:37:19 FINANCIAL SERVICES AGENT CPT-83819 Preventive, Est, (40-64) 15:36:28 CDT CPT-37160 Handling of specimen from office to lab 12:05:18 CDT
== END 2016-12-28 07:18 | disposition home or self-care (01) ==
LOC: EDUNIT# 04:48 → ER 04:49
DX: R00.0 Tachycardia, unspecified (principal); N39.0 Urinary tract infection, site not specified; I10 Essential (primary) hypertension; M81.0 Age-related osteoporosis without current pathological fracture; Z86.718 Personal history of other venous thrombosis and embolism; Z87.59 Personal history of other complications of pregnancy, childbirth and the puerperium; Z90.710 Acquired absence of both cervix and uterus; Z95.828 Presence of other vascular implants and grafts
CPT/HCPCS: 36415; 71020; 80048; 81000; 83735; 84443; 84484; 85025; 87077; 87088; 87186; 93005; 93041; 96365

== ENCOUNTER 2016-12-30 09:28 | Emergency (ER) | payer BC ==
[~2016-12-30] VITALS: Ht 170.2 cm; Wt 90.7 kg
[~2016-12-30 09:28] MED LIST changes: +SULF1TAB35 PO
[2016-12-30 10:29] LABS: BASOPHILS # (AUTO) 0.1 10^3/uL (0.0-0.1); BASOPHILS % (AUTO) 1 % (0-10); EOSINOPHILS # (AUTO) 0.1 10^3/uL (0.0-0.3); EOSINOPHILS % (AUTO) 2 % (0-10); LYMPHOCYTES # (AUTO) 1.4 X 10^3 (1.0-4.0); LYMPHOCYTES % (AUTO) 21 % (12-44); MEAN CORPUSCULAR HEMOGLOBIN 26 PG (25-34); MEAN CORPUSCULAR HGB CONC 33 G/DL (32-36); MEAN CORPUSCULAR VOLUME 79 FL (80-99); MEAN PLATELET VOLUME 10.7 FL (7.4-10.4); MONOCYTES # (AUTO) 0.4 X 10^3 (0.0-1.0); MONOCYTES % (AUTO) 6 % (0-12); NEUTROPHILS # (AUTO) 4.6 X 10^3 (1.8-7.8); NEUTROPHILS % (AUTO) 69 % (42-75); PLATELET COUNT 273 10^3/uL (130-400); RED CELL DISTRIBUTION WIDTH 14.9 % (10.0-14.5); WHITE BLOOD COUNT 6.7 10^3/uL (4.3-11.0)
[2016-12-30 10:39] LABS: ALANINE AMINOTRANSFERASE 21 U/L (0-55); ALBUMIN 4.4 GM/DL (3.2-4.5); ANION GAP 10 MMOL/L (5-14); ASPARTATE AMINO TRANSFERASE 20 U/L (5-34); BILIRUBIN,TOTAL 0.7 MG/DL (0.1-1.0); BLOOD UREA NITROGEN 16 MG/DL (7-18); BUN/CREATININE RATIO 18; CALCIUM 9.4 MG/DL (8.5-10.1); CARBON DIOXIDE 22 MMOL/L (21-32); CHLORIDE 107 MMOL/L (98-107); CREATININE SERUM 0.91 MG/DL (0.60-1.30); GFR ESTIMATED > 60; GLUCOSE 101 MG/DL (70-105); MAGNESIUM 2.1 MG/DL (1.8-2.4); POTASSIUM 4.2 MMOL/L (3.6-5.0); SODIUM 139 MMOL/L (135-145); TOTAL PROTEIN 7.8 GM/DL (6.4-8.2)
[2016-12-30 10:45] LABS: TROPONIN I < 0.30 NG/ML (<0.30)
[2016-12-30 11:33] LABS: BILIRUBIN,URINE NEGATIVE (NEGATIVE); KETONES,URINE NEGATIVE (NEGATIVE); LEUKOCYTE ESTERASE ,URINE NEGATIVE (NEGATIVE); NITRITE,URINE NEGATIVE (NEGATIVE); PH,URINE 6 (5-9); PROTEIN,URINE NEGATIVE (NEGATIVE); UROBILINOGEN,URINE NORMAL (NORMAL)
--- NOTE | 2016-12-30 11:34 | Diagnostic Imaging Report ---
INDICATION: Bladder infection. Tachycardia. COMPARISON: 12/28/2016. FINDINGS: Frontal and lateral views of the chest demonstrate normal heart size and pulmonary vascularity. The lungs are clear. There are no signs of infiltrate, pleural effusion, or pneumothorax. The visualized osseous structures show no acute abnormalities. IMPRESSION: No acute process. No signs of infiltrate, effusion, or pneumothorax. Dictated by: Dictated on workstation # [id number]
[2016-12-30] MEDS ORDERED: NITR-65 PO (12:15)
--- NOTE | 2016-12-30 12:15 | ED Cardiac General ---
History of Present Illness General Chief Complaint: Cardiac/General Problems Stated Complaint: HEART RACING, HIGH BLOOD PRESSURE Nursing Triage Note: PALPITATIONS AND HTN AT HOME SINCE BEING DX WITH UTI AND STARTING ABX LAST WK. Source: patient, old records Exam Limitations: no limitations Allergies and Home Medications Allergies Coded Allergies: No Known Drug Allergies (Unverified , 09/09/09) Home Medications Nitrofurantoin Monohyd/M-Cryst 100 Mg Capsule, 1 TAB PO BID, #6 Prescribed by: LAYLA WALTON on 12/30/16 1215 Sulfamethoxazole/Trimethoprim 1 Each Tablet, 1 EACH PO BID, #14 Prescribed by: LAYLA WALTON on 12/28/16 0643 Past Yssjaou-Kntkqp-Kfodyu Hx Patient Social History Alcohol Use: Denies Use Recreational Drug Use: No Smoking Status: Never a Smoker Recent Foreign Travel: No Contact w/Someone Who Travel: No Recent Infectious Disease Expo: No Recent Hopitalizations: Yes Seasonal Allergies Seasonal Allergies: No Surgeries History of Surgeries: Yes (VENA CAVA FILTER) Surgeries: Section, Gallbladder, Hysterectomy Respiratory History of Respiratory Disorde: Yes Respiratory Disorders: Pulmonary Embolism Cardiovascular History of Cardiac Disorders: Yes Cardiac Disorders: Deep Vein Thrombosis, Hypertension Neurological History of Neurological Disord: No Reproductive System Hx Reproductive Disorders: No Genitourinary History of Genitourinary Disor: No Gastrointestinal History of Gastrointestinal Di: No Musculoskeletal History of Musculoskeletal Dis: Yes Musculoskeletal Disorders: Osteoporosis Endocrine History of Endocrine Disorders: No HEENT History of HEENT Disorders: No Cancer History of Cancer: No Psychosocial History of Psychiatric Problem: No Integumentary History of Skin or Integumenta: No Blood Transfusions History of Blood Disorders: No Family Medical History Significant Family History: No Pertinent Family Hx Physical Exam Vital Signs Vital Sign - Last 12Hours 12/30/16 09:47 Temp 98.6 Pulse 89 Resp 18 B/P (MAP) 149/92 Pulse Ox 92 Capillary Refill : Less Than 3 Seconds Progress/Results/Core Measures Results/Orders Lab Results Laboratory Tests Test 12/30/16 09:55 12/30/16 11:23 Range/Units White Blood Count 6.7 4.3-11.0 10^3/uL Red Blood Count 5.50 4.35-5.85 10^6/uL Hemoglobin 14.4 11.5-16.0 G/DL Hematocrit 44 35-52 % Mean Corpuscular Volume 79 L 80-99 FL Mean Corpuscular Hemoglobin 26 25-34 PG Mean Corpuscular Hemoglobin Concent 33 32-36 G/DL Red Cell Distribution Width 14.9 H 10.0-14.5 % Platelet Count 273 130-400 10^3/uL Mean Platelet Volume 10.7 H 7.4-10.4 FL Neutrophils (%) (Auto) 69 42-75 % Lymphocytes (%) (Auto) 21 12-44 % Monocytes (%) (Auto) 6 0-12 % Eosinophils (%) (Auto) 2 0-10 % Basophils (%) (Auto) 1 0-10 % Neutrophils # (Auto) 4.6 1.8-7.8 X 10^3 Lymphocytes # (Auto) 1.4 1.0-4.0 X 10^3 Monocytes # (Auto) 0.4 0.0-1.0 X 10^3 Eosinophils # (Auto) 0.1 0.0-0.3 10^3/uL Basophils # (Auto) 0.1 0.0-0.1 10^3/uL D-Dimer 0.42 0.00-0.49 UG/ML Sodium Level 139 135-145 MMOL/L Potassium Level 4.2 3.6-5.0 MMOL/L Chloride Level 107 98-107 MMOL/L Carbon Dioxide Level 22 21-32 MMOL/L Anion Gap 10 5-14 MMOL/L Blood Urea Nitrogen 16 7-18 MG/DL Creatinine 0.91 0.60-1.30 MG/DL Estimat Glomerular Filtration Rate > 60 BUN/Creatinine Ratio 18 Glucose Level 101 70-105 MG/DL Calcium Level 9.4 8.5-10.1 MG/DL Magnesium Level 2.1 1.8-2.4 MG/DL Total Bilirubin 0.7 0.1-1.0 MG/DL Aspartate Amino Transf (AST/SGOT) 20 5-34 U/L Alanine Aminotransferase (ALT/SGPT) 21 0-55 U/L Alkaline Phosphatase 131 40-136 U/L Troponin I < 0.30 <0.30 NG/ML Total Protein 7.8 6.4-8.2 GM/DL Albumin 4.4 3.2-4.5 GM/DL Urine Color YELLOW Urine Clarity CLEAR Urine pH 6 5-9 Urine Specific [place] 1.015 L 1.016-1.022 Urine Protein NEGATIVE NEGATIVE Urine Glucose (UA) NEGATIVE NEGATIVE Urine Ketones NEGATIVE NEGATIVE Urine Nitrite NEGATIVE NEGATIVE Urine Bilirubin NEGATIVE NEGATIVE Urine Urobilinogen NORMAL NORMAL MG/DL Urine Leukocyte Esterase NEGATIVE NEGATIVE Urine RBC (Auto) 1+ H NEGATIVE Urine RBC RARE /HPF Urine WBC 2-5 /HPF Urine Squamous Epithelial Cells 5-10 /HPF Urine Crystals NONE /LPF Urine Bacteria TRACE /HPF Urine Casts NONE /LPF Urine Mucus NO /LPF Urine Culture Indicated NO My Orders Orders - LAYLA ZAPATA MD Ekg Tracing (12/30/16 09:50) Monitor-Rhythm Ecg Trace Only (12/30/16 09:50) Urinalysis (12/30/16 09:50) Cbc With Automated Diff (12/30/16 10:21) Comprehensive Metabolic Panel (12/30/16 10:21) Fibrin Degradation Products (12/30/16 10:21) Magnesium (12/30/16 10:21) Troponin I (12/30/16 10:21) Chest Pa/Lat (2 View) (12/30/16 10:21) Vital Signs/I&O Vital Sign - Last 12Hours 12/30/16 09:47 Temp 98.6 Pulse 89 Resp 18 B/P (MAP) 149/92 Pulse Ox 92 Blood Pressure Mean: 111 ECG Initial ECG Impression Date: Dec 30, 2016 Initial ECG Impression Time: 09:46 Initial ECG Rate: 89 Initial ECG Rhythm: Normal Sinus Initial ECG Intervals: Normal Initial ECG Impression: Normal Comment Normal sinus rhythm with no ST elevation or depression. No abnormal intervals or axis deviation. Diagnostic Imaging Diagonstic Imaging: Xray Plain Films/CT/US/NM/MRI: chest Comments Chest x-ray viewed by me and report reviewed. See report below: NAME: REID ABDALLA MED REC#: [id number] PT STATUS: REG ER : 1955 PHYSICIAN: LAYLA ZAPATA MD ADMIT DATE: 12/30/16/ER Draft Date of Exam:12/30/16 CHEST PA/LAT (2 VIEW) INDICATION: Bladder infection. Tachycardia. COMPARISON: 12/28/2016. FINDINGS: Frontal and lateral views of the chest demonstrate normal heart size and pulmonary vascularity. The lungs are clear. There are no signs of infiltrate, pleural effusion, or pneumothorax. The visualized osseous structures show no acute abnormalities. IMPRESSION: No acute process. No signs of infiltrate, effusion, or pneumothorax. Dictated on workstation # [id number] Dict: 12/30/16 1132 Trans: 12/30/16 1134 [id number] Interpreted by: LITTLE OLIVAS Departure Impression Impression: Primary Impression: Palpitations Additional Impression: Urinary tract infection Qualified Codes: N39.0 - Urinary tract infection, site not specified Disposition: HOME, SELF-CARE Condition: Improved Departure-Patient Inst. Referrals: DAMI CARVER DO (PCP/Family) Primary Care Physician Patient Instructions: Palpitations, Urinary Tract Infections in Adults Add. Discharge Instructions: Drink plenty of clear liquids and complete your antibiotic as prescribed. Please be aware that your antibiotic may cause a reddish or orange tint to the urine. Follow-up with Dr. Carver and Dr. Waldron as soon as possible for further evaluation. The exact cause of your palpitations is uncertain. Anxiety may be a contributing factor. All discharge instructions reviewed with patient and/or family. Voiced understanding. Scripts Nitrofurantoin Monohyd/M-Cryst (Macrobid 100 mg Capsule) 100 Mg Capsule 1 TAB PO BID, #6 CAP Prov: LAYLA ZAPATA MD 12/30/16 Copy Copies To 1: NERI WALDRON MD Copies To 2: DAMI CARVER JOSHUA T MD Dec 30, 2016 12:15
[2016-12-30 12:35] VITALS: BP 153/96
--- OUTSIDE RECORDS SUMMARY | 2016-12-30 12:56 | XMS REPORT | Clinical Summary ---
Author Author [facility] Organization [facility] Address Unknown Phone Unavailable Care Team Providers Care Fancy Sewer Name Role Phone PCP Unavailable Source Comments Some departments are not documenting in the electronic medical record. If you do not see the information that you expected, contact Release of Information in the Health Information Management department at [phone] for further assistance in locating additional records.[facility] Allergies No Known Allergies Current Medications [...]
== END 2016-12-30 12:41 | disposition home or self-care (01) ==
LOC: EDUNIT# 09:28 → ER 09:31
DX: R00.2 Palpitations (principal); N39.0 Urinary tract infection, site not specified; I10 Essential (primary) hypertension; M81.0 Age-related osteoporosis without current pathological fracture; Z90.710 Acquired absence of both cervix and uterus; Z87.59 Personal history of other complications of pregnancy, childbirth and the puerperium; Z95.828 Presence of other vascular implants and grafts; Z86.718 Personal history of other venous thrombosis and embolism
CPT/HCPCS: 36415; 71020; 80053; 81000; 83735; 84484; 85025; 85379; 93005; 93041

== ENCOUNTER → 2017-01-24 | Outpatient (CLI) | payer BC ==
[~2017-01-24] MED LIST changes: +NITR-65 PO
[2017-01-24 18:25] LABS: BILIRUBIN,URINE NEGATIVE (NEGATIVE); KETONES,URINE NEGATIVE (NEGATIVE); LEUKOCYTE ESTERASE ,URINE 2+ (NEGATIVE); NITRITE,URINE POSITIVE (NEGATIVE); PH,URINE 6 (5-9); PROTEIN,URINE 1+ (NEGATIVE); UROBILINOGEN,URINE NORMAL (NORMAL)
== END ==
LOC: LAB 17:53
PROVIDERS: ATTEND Internal Medicine
DX: R35.0 Frequency of micturition (principal)
CPT/HCPCS: 81000; 87077; 87088; 87186

== ENCOUNTER → 2017-03-25 | Outpatient (CLI) | payer BC ==
--- NOTE | 2017-03-25 16:22 | Diagnostic Imaging Report ---
PROCEDURE: CT abdomen and pelvis without contrast. TECHNIQUE: Multiple contiguous axial images were obtained through the abdomen and pelvis without the use of intravenous contrast. INDICATION: History of UTIs. FINDINGS: The lung bases appear clear. The liver demonstrates a lobulated contour which could relate to chronic liver disease, correlate clinically. There is an IVC filter in the infrarenal IVC. The IVC filter tines appears to extend into the retroperitoneal fat around the IVC with one of the tines abutting the wall of the abdominal aorta and another one abutting the posterior margin of the third portion of the duodenum. The abdominal aorta is normal in caliber. No para-aortic significantly enlarged lymph nodes are seen. The kidneys demonstrate no hydronephrosis. No urinary tract stones seen. There is suggestion of prior hysterectomy. No bowel obstruction. There is a tiny fat-containing umbilical hernia. There is atrophy of the upper aspect of the right rectus abdominis muscle. A few diverticula are seen in the distal colon. No diverticulitis. The osseous structures demonstrate advanced degenerative changes in the lower lumbar spine and mild to moderate degenerative changes in the SI joints and hip joints. IMPRESSION: 1. No urinary tract stones or hydronephrosis. 2. Tiny fat-containing umbilical hernia. 3. There is an IVC filter seen with multiple tines extending into the retroperitoneum with two of them abutting the aortic wall and the duodenum. Consider filter retrieval if it is not needed anymore. Dictated by: Dictated on workstation # [id number]
== END ==
LOC: RAD 14:02
PROVIDERS: ATTEND Urology
DX: Z09 Encounter for follow-up examination after completed treatment for conditions other than malignant neoplasm (principal); Z87.440 Personal history of urinary (tract) infections; Z95.828 Presence of other vascular implants and grafts
CPT/HCPCS: 74176

== ENCOUNTER 2017-12-05 20:28 | Emergency (ER) | payer BC ==
[~2017-12-05] VITALS: Ht 170.2 cm; Wt 108.9 kg
[2017-12-05] MEDS ORDERED: ASPIRIN 81 MG CHEW (CHILDREN'S ASA) PO ONE (20:45)
--- NOTE | 2017-12-05 20:48 | ED Chest Pain ---
General Stated Complaint: HIGH BP/CHEST PAIN Source: patient Exam Limitations: no limitations History of Present Illness Date Seen by Provider: Dec 05, 2017 Time Seen by Provider: 20:43 Initial Comments Patient presents to the ER by private conveyance with a chief complaint this morning she woke up about 6:30 with some tightness and pressure in her chest across the middle it did not radiate anywhere. She is having no nausea shortness of breath cough or fevers and chills. She does not have a primary history of coronary artery disease but she says about this time last year she had similar feelings and came to the ER was worked up and they did not find anything. She does not follow with a software program manager. She does have a history of high blood pressure and she uses amlodipine for this. She's been on this medication for a while. She is not diabetic does not have hypothyroidism or hypercholesterolemia. She does take aspirin daily and she took an extra 325 mg dose this afternoon but it did not help. She does not use tobacco, alcohol or recreational drugs. She does have an implanted IVC filter secondary to history of DVTs and pulmonary embolism which was provoked secondary to she had heavy uterine bleeding had received some blood transfusions and a hysterectomy a few years ago. She is also had her gallbladder out. Allergies and Home Medications Allergies Coded Allergies: No Known Drug Allergies (Unverified , 09/09/09) Home Medications Nitrofurantoin Monohyd/M-Cryst 100 Mg Capsule, 1 TAB PO BID Prescribed by: LAYLA WALTON on 12/30/16 1215 Sulfamethoxazole/Trimethoprim 1 Each Tablet, 1 EACH PO BID Prescribed by: LAYLA WALTON on 12/28/16 0643 Patient Home Medication List Home Medication List Reviewed: Yes Review of Systems Constitutional: No chills, No diaphoresis EENTM: No Blurred Vision, No Double Vision Respiratory: Denies Cough, Denies Shortness of Air, Denies SOA With Exertion, Denies Wheezing Cardiovascular: See HPI, Chest Pain; Denies Edema, Denies Irregular Heart Rate , Denies Lightheadedness, Denies Palpitations, Denies Syncope Gastrointestinal: Denies Abdomen Distended, Denies Abdominal Pain, Denies Constipated, Denies Diarrhea, Denies Nausea Genitourinary: Denies Burning, Denies Discharge Musculoskeletal: No back pain, No joint pain Skin: No pruritus, No rash Psychiatric/Neurological: Denies Headache, Denies Numbness Past Blunytt-Sxaiqg-Cvnfqu Hx Patient Social History Alcohol Use: Denies Use Recreational Drug Use: No Smoking Status: Never a Smoker Recent Foreign Travel: No Contact w/Someone Who Travel: No Recent Hopitalizations: Yes Seasonal Allergies Seasonal Allergies: No Past Medical History Surgeries: Yes (VENA CAVA FILTER) Section, Gallbladder, Hysterectomy Respiratory: Yes Pulmonary Embolism Cardiac: Yes Deep Vein Thrombosis, Hypertension Neurological: No Reproductive Disorders: No Genitourinary: No Gastrointestinal: No Musculoskeletal: Yes Osteoporosis Endocrine: No HEENT: No Cancer: No Psychosocial: No Integumentary: No Blood Disorders: No Family Medical History No Pertinent Family Hx Physical Exam Vital Signs Capillary Refill : Height, Weight, BMI Height: 5'7.00" Weight: 200lbs. oz. 90.332243gw; 35.15 BMI Method:Stated General Appearance: No Apparent Distress, WD/WN HEENT: PERRL/EOMI, TMs Normal, Normal ENT Inspection, Pharynx Normal Neck: Full Range of Motion, Normal Inspection, Supple Respiratory: Lungs Clear, Normal Breath Sounds, No Accessory Muscle Use, No Respiratory Distress, Other (chest wall tenderness re-created by direct palpation and deep inspiration) Cardiovascular: Regular Rate, Rhythm, No Edema, Normal Peripheral Pulses Gastrointestinal: Normal Bowel Sounds, No Organomegaly, Non Tender, Soft Neurologic/Psychiatric: Alert, Oriented x3 Progress/Results/Core Measures Results/Orders Lab Results Laboratory Tests Test 12/05/17 20:50 12/05/17 21:10 Range/Units White Blood Count 8.6 4.3-11.0 10^3/uL Red Blood Count 5.15 4.35-5.85 10^6/uL Hemoglobin 14.0 11.5-16.0 G/DL Hematocrit 41 35-52 % Mean Corpuscular Volume 79 L 80-99 FL Mean Corpuscular Hemoglobin 27 25-34 PG Mean Corpuscular Hemoglobin Concent 34 32-36 G/DL Red Cell Distribution Width 15.1 H 10.0-14.5 % Platelet Count 270 130-400 10^3/uL Mean Platelet Volume 10.4 7.4-10.4 FL Neutrophils (%) (Auto) 70 42-75 % Lymphocytes (%) (Auto) 21 12-44 % Monocytes (%) (Auto) 7 0-12 % Eosinophils (%) (Auto) 3 0-10 % Basophils (%) (Auto) 1 0-10 % Neutrophils # (Auto) 6.0 1.8-7.8 X 10^3 Lymphocytes # (Auto) 1.8 1.0-4.0 X 10^3 Monocytes # (Auto) 0.6 0.0-1.0 X 10^3 Eosinophils # (Auto) 0.2 0.0-0.3 10^3/uL Basophils # (Auto) 0.0 0.0-0.1 10^3/uL Prothrombin Time 12.9 12.2-14.7 SEC INR Comment 1.0 0.8-1.4 Activated Partial Thromboplast Time 27 24-35 SEC Sodium Level 140 135-145 MMOL/L Potassium Level 3.8 3.6-5.0 MMOL/L Chloride Level 106 98-107 MMOL/L Carbon Dioxide Level 22 21-32 MMOL/L Anion Gap 12 5-14 MMOL/L Blood Urea Nitrogen 14 7-18 MG/DL Creatinine 0.79 0.60-1.30 MG/DL Estimat Glomerular Filtration Rate > 60 BUN/Creatinine Ratio 18 Glucose Level 112 H 70-105 MG/DL Calcium Level 9.8 8.5-10.1 MG/DL Magnesium Level 2.3 1.8-2.4 MG/DL Total Bilirubin 0.8 0.1-1.0 MG/DL Aspartate Amino Transf (AST/SGOT) 17 5-34 U/L Alanine Aminotransferase (ALT/SGPT) 22 0-55 U/L Alkaline Phosphatase 125 40-136 U/L Myoglobin 42.5 10.0-92.0 NG/ML Troponin I < 0.30 <0.30 NG/ML Total Protein 7.5 6.4-8.2 GM/DL Albumin 4.5 3.2-4.5 GM/DL Urine Color YELLOW Urine Clarity CLEAR Urine pH 6 5-9 Urine Specific [place] 1.015 L 1.016-1.022 Urine Protein NEGATIVE NEGATIVE Urine Glucose (UA) NEGATIVE NEGATIVE Urine Ketones NEGATIVE NEGATIVE Urine Nitrite NEGATIVE NEGATIVE Urine Bilirubin NEGATIVE NEGATIVE Urine Urobilinogen NORMAL NORMAL MG/DL Urine Leukocyte Esterase NEGATIVE NEGATIVE Urine RBC (Auto) NEGATIVE NEGATIVE Urine RBC 0-2 /HPF Urine WBC RARE /HPF Urine Squamous Epithelial Cells 2-5 /HPF Urine Crystals NONE /LPF Urine Bacteria FEW H /HPF Urine Casts NONE /LPF Urine Mucus NEGATIVE /LPF Urine Culture Indicated NO My Orders Orders - JOVANNA CASAS Ekg Tracing (12/05/17 20:29) Continuous Ekg Monitoring (12/05/17 20:29) Cbc With Automated Diff (12/05/17 20:37) Magnesium (12/05/17 20:37) Chest 1 View, Ap/Pa Only (12/05/17 20:37) Cardiac Profile 1 (12/05/17 20:37) Comprehensive Metabolic Panel (12/05/17 20:37) Myoglobin Serum (12/05/17 20:37) Protime With Inr (12/05/17 20:37) Partial Thromboplastin Time (12/05/17 20:37) O2 (12/05/17 20:37) Lipid Panel (12/06/17 06:00) Aspirin Chewable Tablet (Baby Aspirin Ch (12/05/17 20:45) Nitroglycerin 0.4 Mg Btl 25's (Nitrostat (12/05/17 20:45) Saline Lock/Iv-Start (12/05/17 20:37) Ua Culture If Indicated (12/05/17 21:07) Medications Given in ED Current Medications Medications Dose Ordered Sig/Halima Route Start Time Stop Time Status Last Admin Dose Admin Aspirin 324 mg ONCE ONCE PO 12/05/17 20:45 12/05/17 20:46 DC 12/05/17 20:50 324 MG Nitroglycerin 0.4 mg UD PRN SL 12/05/17 20:45 12/05/17 21:05 DC 12/05/17 21:05 0.4 MG Progress Progress Note #1: Time: 20:48 Progress Note She is not having any shortness of breath, cough, other worrisome symptoms for a pulmonary embolism. It seems like her last time when she had a pulmonary embolism was provoked, and related temporally at least to her hysterectomy. With just some tightness in the chest is reproducible by palpation I think a d- dimer would only cloud the situation more than adequate useful information. We will give her another aspirin since we don't hold the aspirin she took at home is and since her blood pressure is elevated we will also give her a dose of nitroglycerin and see if that improves her 5 out of 10 chest pressure/pain. We' ll do a cardiac workup and consult with cardiology would have some or results. Initial EKG was unremarkable. ED ACS is negative two points. If the patient also has: (1) EKG without new ischemic changes and (2) negative initial and 2-hour troponins, then this patient is safe for discharge to early outpatient follow-up investigation (or proceed to earlier inpatient testing). If EKG with ischemic changes or positive troponin, they are not low risk and require normal risk stratification. Progress Note #2: Time: 21:52 Progress Note Patient is pain-free without nausea shortness of breath. We discussed the possibility of a chest wall pain syndrome and that her may be benefited NSAIDs and if she starts having any chest pain to discontinue the NSAIDs and return to the ER for admission. We discussed following up with Dr. Waldron in the clinic and had a long conversation answered all her questions and she agrees with the plan. Her was present and his questions were also answered. Initial ECG Impression Date: Dec 05, 2017 Initial ECG Impression Time: 20:34 Initial ECG Rate: 88 Initial ECG Rhythm: Normal Sinus Initial ECG Intervals: Normal Initial ECG Impression: Normal, Nonspecific Changes Initial ECG Comparisson: No Previous ECG Available Comment No ST elevation or depression. Diagnostic Imaging Diagonstic Imaging: Xray Plain Films/CT/US/NM/MRI: chest (1v) Comments NAME: REID ABDALLA MED REC#: [id number] PHYSICIAN: JOVANNA CASAS MD CC: LISA PATEL MD; JOVANNA CASAS Page 1 of 1 RADIOLOGY REPORT VIA [place], [place] CC: LISA PATEL MD; JOVANNA CASAS Page 1 of 1 RADIOLOGY REPORT NAME: REID ABDALLA MED REC#: [id number] PT STATUS: REG ER : 1955 PHYSICIAN: JOVANNA CASAS MD ADMIT DATE: 12/05/17/ER Signed Date of Exam: 12/05/17 CHEST 1 VIEW, AP/PA ONLY Patient History: Chest pain. Hypertension Technique: Single frontal view of the chest Comparison: 12/30/2016 FINDINGS: The lung volumes are normal. No focal consolidation is seen. No large pleural effusion or pneumothorax is seen. The cardiomediastinal silhouette is normal in size and contour. No acute osseous abnormality is seen. IMPRESSION: No acute pulmonary abnormality seen. Dictated by: Dictated on workstation # [id number] Dict: 12/05/172104 Trans: 12/05/172127 Interpreted by: LISA PATEL MD Electronically signed by: LISA PATEL MD 12/05/172127 Reviewed: Reviewed by Me Consults : Consulting Physician: NERI WALDRON MD Consults Notes He agrees with the assessment of probable chest wall pain and would be okay if the patient is pain-free seen them in the clinic Friday. However if the patient starts to have any more chest pain that should return promptly to the ER and he would admit them. Departure Impression Primary Impression: Acute chest wall pain Disposition: HOME, SELF-CARE Condition: Improved Departure-Patient Inst. Decision time for Depature: 21:53 Referrals: DAMI CARVER DO (PCP/Family) Primary Care Physician NERI WALDRON MD Patient Instructions: Chest Pain That Is Not Caused by the Heart (DC) Add. Discharge Instructions: Drink plenty of fluids and use ibuprofen 800 mg every 8 hours or Naprosyn 2 capsules twice a day for the next several days for your chest wall pain. Friday please call Dr. Waldron at his clinic and get an appointment for Friday or Friday. Return to the ER immediately if you begin to have chest pain again. You can use muscle rubs such as icy hot or Capsaicin oil on your chest. Copy Copies To 1: DAMI CARVER DO; NERI WALDRON MD, TITUS J Dec 05, 2017 20:48
[2017-12-05] MEDS: NITROGLYCERIN 0.4 MG SL TABS BTL 25'S SL PRN ×3 (20:50→21:05)
[2017-12-05 21:00] LABS: BASOPHILS % (AUTO) 1 % (0-10); EOSINOPHILS # (AUTO) 0.2 10^3/uL (0.0-0.3); EOSINOPHILS % (AUTO) 3 % (0-10); HEMATOCRIT 41 % (35-52); LYMPHOCYTES # (AUTO) 1.8 X 10^3 (1.0-4.0); LYMPHOCYTES % (AUTO) 21 % (12-44); MEAN CORPUSCULAR HEMOGLOBIN 27 PG (25-34); MEAN CORPUSCULAR HGB CONC 34 G/DL (32-36); MEAN CORPUSCULAR VOLUME 79 FL (80-99); MEAN PLATELET VOLUME 10.4 FL (7.4-10.4); MONOCYTES # (AUTO) 0.6 X 10^3 (0.0-1.0); MONOCYTES % (AUTO) 7 % (0-12); NEUTROPHILS % (AUTO) 70 % (42-75); PLATELET COUNT 270 10^3/uL (130-400); RED BLOOD COUNT 5.15 10^6/uL (4.35-5.85); RED CELL DISTRIBUTION WIDTH 15.1 % (10.0-14.5); WHITE BLOOD COUNT 8.6 10^3/uL (4.3-11.0)
--- NOTE | 2017-12-05 21:09 | Diagnostic Imaging Report ---
Patient History: Chest pain. Hypertension Technique: Single frontal view of the chest Comparison: 12/30/2016 FINDINGS: The lung volumes are normal. No focal consolidation is seen. No large pleural effusion or pneumothorax is seen. The cardiomediastinal silhouette is normal in size and contour. No acute osseous abnormality is seen. IMPRESSION: No acute pulmonary abnormality seen. Dictated by: Dictated on workstation # [id number]
[2017-12-05 21:10] LABS: PROTHROMBIN TIME PATIENT 12.9 SEC (12.2-14.7)
[2017-12-05 21:17] LABS: BILIRUBIN,URINE NEGATIVE (NEGATIVE); CLARITY,URINE CLEAR; COLOR,URINE YELLOW; GLUCOSE, URINE (UA) NEGATIVE (NEGATIVE); KETONES,URINE NEGATIVE (NEGATIVE); LEUKOCYTE ESTERASE ,URINE NEGATIVE (NEGATIVE); NITRITE,URINE NEGATIVE (NEGATIVE); PH,URINE 6 (5-9); PROTEIN,URINE NEGATIVE (NEGATIVE); UROBILINOGEN,URINE NORMAL (NORMAL)
[2017-12-05 21:17] LABS: ALANINE AMINOTRANSFERASE 22 U/L (0-55); ALBUMIN 4.5 GM/DL (3.2-4.5); ALKALINE PHOSPHATASE 125 U/L (40-136); BILIRUBIN,TOTAL 0.8 MG/DL (0.1-1.0); BUN/CREATININE RATIO 18; CALCIUM 9.8 MG/DL (8.5-10.1); CARBON DIOXIDE 22 MMOL/L (21-32); CHLORIDE 106 MMOL/L (98-107); CREATININE SERUM 0.79 MG/DL (0.60-1.30); GFR ESTIMATED > 60; GLUCOSE 112 MG/DL (70-105); MAGNESIUM 2.3 MG/DL (1.8-2.4); POTASSIUM 3.8 MMOL/L (3.6-5.0); SODIUM 140 MMOL/L (135-145); TOTAL PROTEIN 7.5 GM/DL (6.4-8.2)
[2017-12-05 21:24] LABS: MYOGLOBIN SERUM 42.5 NG/ML (10.0-92.0)
[2017-12-05 21:25] LABS: BACTERIA,URINE FEW /HPF; RBC,URINE 0-2 /HPF; WBC,URINE RARE /HPF
[2017-12-05 22:05] VITALS: BP 142/74
--- OUTSIDE RECORDS SUMMARY | 2017-12-06 11:21 | XMS REPORT | Clinical Summary ---
Author Author [facility] Organization [facility] Address Unknown Phone Unavailable Care Team Providers Care Commercial Fisherman Name Role Phone Milana Jensen MD PCP Milton Fried MD Unavailable Sharonda Haider MD Unavailable Source Comments Some departments are not documenting in the electronic medical record. If you do not see the information that you expected, contact Release of Information in the Health Information Management department at [phone] for further assistance in locating additional records.[facility] Allergies No Known Allergies Current Medications [...] CANCER SCREENING 1997 COLORECTAL CANCER 09/15/2007 SCREENING SHINGLES RECOMBINANT 09/15/2007 VACCINE (1 of 2) INFLUENZA VACCINE 02/02/2018 HIV SCREENING Completed 08/31/2009 Results Not on filefrom Last 3 Months
--- OUTSIDE RECORDS SUMMARY | 2017-12-06 11:27 | XMS REPORT | Continuity of Care Document ---
Author Author [facility] Organization [facility] Address Unknown Phone Unavailable Allergies Active Description Code Type Severity Reaction Onset Reported/Identified Relationship to Patient Clinical Status Yes No Known Drug Allergies [id number] Drug Allergy Mild N/A 09/09/2009 Medications There is no data. Problems Date Dx Coded Attending Type Code Diagnosis Diagnosed By 09/09/2009 Ot 218.9 09/09/2009 Ot 300.00 09/09/2009 Ot 416.2 09/09/2009 Ot 453.50 09/09/2009 Ot 785.1 09/09/2009 Ot V58.61 05/07/2010 Ot 401.9 05/07/2010 Ot 786.50 05/07/2010 Ot V12.51 05/07/2010 Ot V58.69 01/21/2014 DEVAUGHN PACKER MD Ot 724.6 DISORDERS OF SACRUM 01/21/2014 DEVAUGHN PACKER MD Ot V58.69 OT MED,LT,CURRENT USE 04/11/2014 CARVER DO, DAMI Ot 280.9 04/11/2014 CARVER DO, DAMI Ot 286.0 04/11/2014 CARVER DO, DAMI Ot 356.9 04/11/2014 CARVER DO, DAMI Ot 401.1 04/11/2014 CARVER DO, DAMI Ot V12.51 04/11/2014 CARVER DO, DAMI Ot V12.55 06/02/2014 CARVER DO, DAMI Ot 461.3 08/05/2014 Ot 280.9 08/05/2014 Ot 286.0 08/05/2014 Ot 356.9 08/05/2014 Ot 401.9 08/05/2014 Ot 783.1 08/05/2014 Ot 790.29 08/05/2014 Ot V58.69 11/13/2014 Ot 415.19 11/13/2014 Ot 786.2 11/13/2014 Ot 793.1 11/13/2014 Ot 729.5 11/13/2014 Ot 461.3 11/13/2014 Ot 280.9 11/13/2014 Ot 415.19 11/13/2014 Ot 451.19 11/13/2014 Ot V16.3 11/13/2014 Ot 280.9 11/13/2014 Ot 285.9 11/13/2014 Ot 286.0 11/13/2014 Ot 401.9 11/13/2014 Ot 415.19 11/13/2014 Ot 451.19 11/13/2014 Ot 461.3 11/13/2014 Ot 729.1 11/13/2014 Ot 729.5 11/13/2014 Ot 784.7 11/13/2014 Ot V58.61 11/13/2014 Ot V70.0 11/13/2014 Ot 486 11/13/2014 CARVER DO, DAMI Ot 599.0 11/13/2014 BIRDIE GUTIERREZ, DEVAUGHN Lester Ot 724.6 11/13/2014 CARVER DO, DAMI Ot 280.9 11/13/2014 CARVER DO, DAMI Ot 286.0 11/13/2014 CARVER DO, DAMI Ot 356.9 11/13/2014 CARVER DO, DAMI Ot 401.1 11/13/2014 CARVER DO, DAMI Ot V12.51 11/13/2014 CARVER DO, DAMI Ot V12.55 11/13/2014 CARVER DO, DAMI Ot 461.3 11/13/2014 Ot 280.9 11/13/2014 Ot 286.0 11/13/2014 Ot 356.9 11/13/2014 Ot 401.9 11/13/2014 Ot 783.1 11/13/2014 Ot 790.29 11/13/2014 Ot V58.69 11/13/2014 FLETCHER ODELL Ot 729.5 PAIN IN LIMB 11/13/2014 FLETCHER ODELL Ot 844.9 SPRAIN OF KNEE LEG NOS 11/13/2014 FLETCHER ODELL Ot E000.8 OTHER EXTERNAL CAUSE STATUS 11/13/2014 FLETCHER ODELL Ot E928.9 ACCIDENT NOS 11/13/2014 FLETCHER ODELL Ot V12.51 HX-VENOUS THROMBOSIS EMBOLISM 11/13/2014 FLETCHER ODELL Ot V12.55 PERSONAL HISTORY OF PULMONARY EMBOLISM 01/12/2015 DAMI CARVER DO Ot 280.9 01/12/2015 CARVERDAMI BURNS DO Ot 286.0 01/12/2015 DAMI CARVER DO Ot 401.9 01/12/2015 DAMI CARVER DO Ot 783.1 01/12/2015 DAMI CARVER DO Ot 790.29 01/12/2015 DAMI CARVER DO Ot V58.69 05/24/2015 DAMI CARVER DO Ot D50.9 05/24/2015 DAMI CARVER DO Ot R73.9 05/24/2015 DAMI CARVER DO Ot Z00.00 12/01/2015 Ot 280.9 IRON DEFIC ANEMIA NOS 12/01/2015 Ot 285.9 ANEMIA NOS 12/01/2015 Ot 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 12/01/2015 Ot 401.9 HYPERTENSION NOS 12/01/2015 Ot 415.19 OTH PULMON EMBOLISM/INFARCT 12/01/2015 Ot 451.19 DEEP PHLEBITIS-LEG NEC 12/01/2015 Ot 461.3 AC SPHENOIDAL SINUSITIS 12/01/2015 Ot 729.1 MYALGIA AND MYOSITIS NOS 12/01/2015 Ot 729.5 PAIN IN LIMB 12/01/2015 Ot 784.7 EPISTAXIS 12/01/2015 Ot V58.61 ANTICOAGULANTS,LT,CURRENT USE 12/01/2015 Ot V70.0 ROUTINE MEDICAL EXAM 12/01/2015 Ot 486 PNEUMONIA, ORGANISM NOS 12/01/2015 DAMI CARVER DO Ot 599.0 URIN TRACT INFECTION NOS 12/01/2015 BIRDIE GUTIERREZ, DEVAUGHN Lester Ot 724.6 DISORDERS OF SACRUM 12/01/2015 DAMI CARVER DO Ot 280.9 IRON DEFIC ANEMIA NOS 12/01/2015 DAMI CARVER DO Ot 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 12/01/2015 DAMI CARVER DO Ot 356.9 IDIO PERIPH NEURPTHY NOS 12/01/2015 DAMI CARVER DO Ot 401.1 BENIGN HYPERTENSION 12/01/2015 DAMI CARVER DO Ot V12.51 HX-VENOUS THROMBOSIS EMBOLISM 12/01/2015 DAMI CARVER DO Ot V12.55 PERSONAL HISTORY OF PULMONARY EMBOLISM 12/01/2015 DAMI CARVER DO Ot 461.3 AC SPHENOIDAL SINUSITIS 12/01/2015 Ot 280.9 IRON DEFIC ANEMIA NOS 12/01/2015 Ot 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 12/01/2015 Ot 356.9 IDIO PERIPH NEURPTHY NOS 12/01/2015 Ot 401.9 HYPERTENSION NOS 12/01/2015 Ot 783.1 ABNORMAL WEIGHT GAIN 12/01/2015 Ot 790.29 OTHER ABNORMAL GLUCOSE 12/01/2015 Ot V58.69 OTH MED,LT, CURRENT USE 12/01/2015 CARINA CARVER DOI Ot 280.9 IRON DEFIC ANEMIA NOS 12/01/2015 CARVERKATY BOSWELL DAMI Ot 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 12/01/2015 CARVERKATY BOSWELL DAMI Ot 401.9 HYPERTENSION NOS 12/01/2015 CARVERKATY BOSWELL DAMI Ot 783.1 ABNORMAL WEIGHT GAIN 12/01/2015 MEHUL BOSWELL DAMI Ot 790.29 OTHER ABNORMAL GLUCOSE 12/01/2015 CARINA CARVER DOI Ot V58.69 OTH MED,LT,CURRENT USE 12/01/2015 DAMI CARVER DO Ot D50.9 IRON DEFICIENCY ANEMIA, UNSPECIFIED 12/01/2015 MEHUL BOSWELL DAMI Ot R73.9 HYPERGLYCEMIA, UNSPECIFIED 12/01/2015 CARINA CARVER DOI Ot Z00.00 ENCNTR FOR GENERAL ADULT MEDICAL EXAM W/ 12/27/2015 Ot 280.9 IRON DEFIC ANEMIA NOS 12/27/2015 Ot 285.9 ANEMIA NOS 12/27/2015 Ot 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 12/27/2015 Ot 401.9 HYPERTENSION NOS 12/27/2015 Ot 415.19 OTH PULMON EMBOLISM/INFARCT 12/27/2015 Ot 451.19 DEEP PHLEBITIS-LEG NEC 12/27/2015 Ot 461.3 AC SPHENOIDAL SINUSITIS 12/27/2015 Ot 729.1 MYALGIA AND MYOSITIS NOS 12/27/2015 Ot 729.5 PAIN IN LIMB 12/27/2015 Ot 784.7 EPISTAXIS 12/27/2015 Ot V58.61 ANTICOAGULANTS,LT,CURRENT USE 12/27/2015 Ot V70.0 ROUTINE MEDICAL EXAM 12/27/2015 Ot 486 PNEUMONIA, ORGANISM NOS 12/27/2015 DAMI CARVER DO Ot 599.0 URIN TRACT INFECTION NOS 12/27/2015 BIRDIE GUTIERREZ, DEVAUGHN Lester Ot 724.6 DISORDERS OF SACRUM 12/27/2015 CARVER DO DAMI Ot 280.9 IRON DEFIC ANEMIA NOS 12/27/2015 CARVER DO, DAMI Ot 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 12/27/2015 CARVER DO DAMI Ot 356.9 IDIO PERIPH NEURPTHY NOS 12/27/2015 CARVERKATY BOSWELL DAMI Ot 401.1 BENIGN HYPERTENSION 12/27/2015 CARVERKATY BOSWELL DAMI Ot V12.51 HX-VENOUS THROMBOSIS EMBOLISM 12/27/2015 MEHUL BOSWELL DAMI Ot V12.55 PERSONAL HISTORY OF PULMONARY EMBOLISM 12/27/2015 MEHUL BOSWELL DAMI Ot 461.3 AC SPHENOIDAL SINUSITIS 12/27/2015 Ot 280.9 IRON DEFIC ANEMIA NOS 12/27/2015 Ot 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 12/27/2015 Ot 356.9 IDIO PERIPH NEURPTHY NOS 12/27/2015 Ot 401.9 HYPERTENSION NOS 12/27/2015 Ot 783.1 ABNORMAL WEIGHT GAIN 12/27/2015 Ot 790.29 OTHER ABNORMAL GLUCOSE 12/27/2015 Ot V58.69 OTH MED,LT, CURRENT USE 12/27/2015 CARVER DO, DAMI Ot 280.9 IRON DEFIC ANEMIA NOS 12/27/2015 CARVER DO DAMI Ot 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 12/27/2015 CARVER DO, DAMI Ot 401.9 HYPERTENSION NOS 12/27/2015 CARVERKATY BOSWELL DAMI Ot 783.1 ABNORMAL WEIGHT GAIN 12/27/2015 CARVER DO DAMI Ot 790.29 OTHER ABNORMAL GLUCOSE 12/27/2015 CARVER DO DAMI Ot V58.69 OTH MED,LT,CURRENT USE 12/27/2015 CARVER DO, DAMI Ot D50.9 IRON DEFICIENCY ANEMIA, UNSPECIFIED 12/27/2015 CARVER DO DAMI Ot R73.9 HYPERGLYCEMIA, UNSPECIFIED 12/27/2015 CARVER DO DAMI Ot Z00.00 ENCNTR FOR GENERAL ADULT MEDICAL EXAM W/ 04/16/2016 Ot 486 PNEUMONIA, ORGANISM NOS 04/16/2016 MEHUL BOSWELL DAMI Ot 599.0 URIN TRACT INFECTION NOS 04/16/2016 BIRDIE GUTIERREZ, DEVAUGHN Lester Ot 724.6 DISORDERS OF SACRUM 04/16/2016 MEHUL BOSWELL DAMI Ot 280.9 IRON DEFIC ANEMIA NOS 04/16/2016 CARVERKATY BOSWELL DAMI Ot 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 04/16/2016 MEHUL BOSWELL DAMI Ot 356.9 IDIO PERIPH NEURPTHY NOS 04/16/2016 MEHUL BOSWELL DAMI Ot 401.1 BENIGN HYPERTENSION 04/16/2016 MEHUL BOSWELL DAMI Ot V12.51 HX-VENOUS THROMBOSIS EMBOLISM 04/16/2016 CARINA CARVER DOI Ot V12.55 PERSONAL HISTORY OF PULMONARY EMBOLISM 04/16/2016 MEHUL BOSWELL DAMI Ot 461.3 AC SPHENOIDAL SINUSITIS 04/16/2016 Ot 280.9 IRON DEFIC ANEMIA NOS 04/16/2016 Ot 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 04/16/2016 Ot 356.9 IDIO PERIPH NEURPTHY NOS 04/16/2016 Ot 401.9 HYPERTENSION NOS 04/16/2016 Ot 783.1 ABNORMAL WEIGHT GAIN 04/16/2016 Ot 790.29 OTHER ABNORMAL GLUCOSE 04/16/2016 Ot V58.69 OTH MED,LT, CURRENT USE 04/16/2016 MEHUL BOSWELL DAMI Ot 280.9 IRON DEFIC ANEMIA NOS 04/16/2016 MEHUL BOSWELL DAMI Ot 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 04/16/2016 MEHUL BOSWELL DAMI Ot 401.9 HYPERTENSION NOS 04/16/2016 MEHUL BOSWELL DAMI Ot 783.1 ABNORMAL WEIGHT GAIN 04/16/2016 MEHUL BOSWELL DAMI Ot 790.29 OTHER ABNORMAL GLUCOSE 04/16/2016 DAMI CARVER DO Ot V58.69 OT MED,LT,CURRENT USE 04/16/2016 MEHUL BOSWELL DAMI Ot D50.9 IRON DEFICIENCY ANEMIA, UNSPECIFIED 04/16/2016 MEHUL BOSWELL DAMI Ot R73.9 HYPERGLYCEMIA, UNSPECIFIED 04/16/2016 DAMI CARVER DO Ot Z00.00 ENCNTR FOR GENERAL ADULT MEDICAL EXAM W/ 06/07/2016 Ot 486 PNEUMONIA, ORGANISM NOS 06/07/2016 MEHUL BOSWELL DAMI Ot 599.0 URIN TRACT INFECTION NOS 06/07/2016 BIRDIE GUTIERREZ, DEVAUGHN Lester Ot 724.6 DISORDERS OF SACRUM 06/07/2016 MEHUL BOSWELL DAMI Ot 280.9 IRON DEFIC ANEMIA NOS 06/07/2016 CARVER DO, DAMI Ot 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 06/07/2016 CARVER DO DAMI Ot 356.9 IDIO PERIPH NEURPTHY NOS 06/07/2016 CARVERKATY BOSWELL DAMI Ot 401.1 BENIGN HYPERTENSION 06/07/2016 CARVER DO DAMI Ot V12.51 HX-VENOUS THROMBOSIS EMBOLISM 06/07/2016 CARVERKATY BOSWELL DAMI Ot V12.55 PERSONAL HISTORY OF PULMONARY EMBOLISM 06/07/2016 MEHUL BOSWELL DAMI Ot 461.3 AC SPHENOIDAL SINUSITIS 06/07/2016 Ot 280.9 IRON DEFIC ANEMIA NOS 06/07/2016 Ot 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 06/07/2016 Ot 356.9 IDIO PERIPH NEURPTHY NOS 06/07/2016 Ot 401.9 HYPERTENSION NOS 06/07/2016 Ot 783.1 ABNORMAL WEIGHT GAIN 06/07/2016 Ot 790.29 OTHER ABNORMAL GLUCOSE 06/07/2016 Ot V58.69 OTH MED,LT, CURRENT USE 06/07/2016 DAMI CARVER DO Ot 280.9 IRON DEFIC ANEMIA NOS 06/07/2016 CARVERKATY BOSWELL DAMI Ot 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 06/07/2016 CARVERKATY BOSWELL DAMI Ot 401.9 HYPERTENSION NOS 06/07/2016 MEHUL BOSWELL DAMI Ot 783.1 ABNORMAL WEIGHT GAIN 06/07/2016 MEHUL BOSWELL DAMI Ot 790.29 OTHER ABNORMAL GLUCOSE 06/07/2016 MEHUL BOSWELL DAMI Ot V58.69 OTH MED,LT,CURRENT USE 06/07/2016 MEHUL BOSWELL DAMI Ot D50.9 IRON DEFICIENCY ANEMIA, UNSPECIFIED 06/07/2016 MEHUL BOSWELL DAMI Ot R73.9 HYPERGLYCEMIA, UNSPECIFIED 06/07/2016 MEHUL BOSWELL DAMI Ot Z00.00 ENCNTR FOR GENERAL ADULT MEDICAL EXAM 09/30/2016 JIGAR ROSE DRIVER TRAINER Ot N30.01 ACUTE CYSTITIS WITH HEMATURIA 10/14/2016 JIGAR ROSE DRIVER TRAINER Ot N30.01 ACUTE CYSTITIS WITH HEMATURIA 11/06/2016 Ot 486 PNEUMONIA, ORGANISM NOS 11/06/2016 DAMI CARVER DO Ot 599.0 URIN TRACT INFECTION NOS 11/06/2016 BIRDIE GUTIERREZ, DEVAUGHN Lester Ot 724.6 DISORDERS OF SACRUM 11/06/2016 CARVERKATY BOSWELL DAMI Ot 280.9 IRON DEFIC ANEMIA NOS 11/06/2016 CARVERKATY BOSWELL DAMI Ot 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 11/06/2016 CARVERKATY BOSWELL DAMI Ot 356.9 IDIO PERIPH NEURPTHY NOS 11/06/2016 CARVERKATY BOSWELL DAMI Ot 401.1 BENIGN HYPERTENSION 11/06/2016 CARVERKATY BOSWELL DAMI Ot V12.51 HX-VENOUS THROMBOSIS EMBOLISM 11/06/2016 MEHUL BOSWELL DAMI Ot V12.55 PERSONAL HISTORY OF PULMONARY EMBOLISM 11/06/2016 MEHUL BOSWELL DAMI Ot 461.3 AC SPHENOIDAL SINUSITIS 11/06/2016 Ot 280.9 IRON DEFIC ANEMIA NOS 11/06/2016 Ot 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 11/06/2016 Ot 356.9 IDIO PERIPH NEURPTHY NOS 11/06/2016 Ot 401.9 HYPERTENSION NOS 11/06/2016 Ot 783.1 ABNORMAL WEIGHT GAIN 11/06/2016 Ot 790.29 OTHER ABNORMAL GLUCOSE 11/06/2016 Ot V58.69 OTH MED,LT, CURRENT USE 11/06/2016 CARVERKATY BOSWELL DAMI Ot 280.9 IRON DEFIC ANEMIA NOS 11/06/2016 CARVERKATY BOSWELL DAMI Ot 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 11/06/2016 MEHUL BOSWELL DAMI Ot 401.9 HYPERTENSION NOS 11/06/2016 CARVERKATY BOSWELL DAMI Ot 783.1 ABNORMAL WEIGHT GAIN 11/06/2016 CARVERKATY BOSWELL DAMI Ot 790.29 OTHER ABNORMAL GLUCOSE 11/06/2016 MEHUL BOSWELL DAMI Ot V58.69 OTH MED,LT,CURRENT USE 11/06/2016 MEHUL BOSWELL DAMI Ot D50.9 IRON DEFICIENCY ANEMIA, UNSPECIFIED 11/06/2016 CARVERKATY BOSWELL DAMI Ot R73.9 HYPERGLYCEMIA, UNSPECIFIED 11/06/2016 MEHUL BOSWELL DAMI Ot Z00.00 ENCNTR FOR GENERAL ADULT MEDICAL EXAM W/ 11/06/2016 JIGAR ROSE APRN Ot N30.01 ACUTE CYSTITIS WITH HEMATURIA 12/28/2016 Ot 486 PNEUMONIA, ORGANISM NOS 12/28/2016 DAMI CARVER DO Ot 599.0 URIN TRACT INFECTION NOS 12/28/2016 DEVAUGHN PACKER MD Ot 724.6 DISORDERS OF SACRUM 12/28/2016 CARVERKATY BOSWELL ADMI Ot 280.9 IRON DEFIC ANEMIA NOS 12/28/2016 CARVERKATY BOSWELL DAMI Ot 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 12/28/2016 CARVERKATY BOSWELL DAMI Ot 356.9 IDIO PERIPH NEURPTHY NOS 12/28/2016 CARVERKATY BOSWELL DAMI Ot 401.1 BENIGN HYPERTENSION 12/28/2016 MEHUL BOSWELL DAMI Ot V12.51 HX-VENOUS THROMBOSIS EMBOLISM 12/28/2016 MEHUL BOSWELL DAMI Ot V12.55 PERSONAL HISTORY OF PULMONARY EMBOLISM 12/28/2016 MEHUL BOSWELL DAMI Ot 461.3 AC SPHENOIDAL SINUSITIS 12/28/2016 Ot 280.9 IRON DEFIC ANEMIA NOS 12/28/2016 Ot 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 12/28/2016 Ot 356.9 IDIO PERIPH NEURPTHY NOS 12/28/2016 Ot 401.9 HYPERTENSION NOS 12/28/2016 Ot 783.1 ABNORMAL WEIGHT GAIN 12/28/2016 Ot 790.29 OTHER ABNORMAL GLUCOSE 12/28/2016 Ot V58.69 OTH MED,LT, CURRENT USE 12/28/2016 CARVERKATY BOSWELL DAMI Ot 280.9 IRON DEFIC ANEMIA NOS 12/28/2016 CARVERKATY BOSWELL DAMI Ot 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 12/28/2016 MEHUL BOSWELL DAMI Ot 401.9 HYPERTENSION NOS 12/28/2016 CARVERKATY BOSWELL DAMI Ot 783.1 ABNORMAL WEIGHT GAIN 12/28/2016 MEHUL BOSWELL DAMI Ot 790.29 OTHER ABNORMAL GLUCOSE 12/28/2016 MEHUL BOSWELL DAMI Ot V58.69 OTH MED,LT,CURRENT USE 12/28/2016 MEHUL BOSWELL DAMI Ot D50.9 IRON DEFICIENCY ANEMIA, UNSPECIFIED 12/28/2016 MEHUL BOSWELL DAMI Ot R73.9 HYPERGLYCEMIA, UNSPECIFIED 12/28/2016 MEHUL DO DAMI Ot Z00.00 ENCNTR FOR GENERAL ADULT MEDICAL EXAM 12/28/2016 JIGAR ROSE APRN Ot N30.01 ACUTE CYSTITIS WITH HEMATURIA 12/28/2016 JODI GUTIERREZ, LAYLA Marvin Ot I10 ESSENTIAL (PRIMARY) HYPERTENSION 12/28/2016 JODI GUTIERREZ, LAYLA T Ot M81.0 AGE-RELATED OSTEOPOROSIS W/O CURRENT PAT 12/28/2016 LAYLA ZAPATA MD Ot N39.0 URINARY TRACT INFECTION, SITE NOT SPECIF 12/28/2016 LAYLA ZAPATA MD Ot R00.0 TACHYCARDIA, UNSPECIFIED 12/28/2016 LAYLA ZAPATA MD Ot Z86.718 PERSONAL HISTORY OF OTHER VENOUS THROMBO 12/28/2016 LAYLA ZAPATA MD Ot Z87.59 PERSONAL HISTORY OF COMP OF PREG, CHLDBR 12/28/2016 LAYLA ZAPATA MD Ot Z90.710 ACQUIRED ABSENCE OF BOTH CERVIX AND UTER 12/28/2016 LAYLA ZAPATA MD Ot Z95.828 PRESENCE OF OTHER VASCULAR IMPLANTS AND 12/30/2016 LAYLA ZAPATA MD Ot I10 ESSENTIAL (PRIMARY) HYPERTENSION 12/30/2016 LAYLA ZAPATA MD Ot M81.0 AGE-RELATED OSTEOPOROSIS W/O CURRENT PAT 12/30/2016 LAYLA ZAPATA MD Ot N39.0 URINARY TRACT INFECTION, SITE NOT SPECIF 12/30/2016 LAYLA ZAPATA MD Ot R00.2 PALPITATIONS 12/30/2016 LAYLA ZAPATA MD Ot Z86.718 PERSONAL HISTORY OF OTHER VENOUS THROMBO 12/30/2016 LAYLA ZAPATA MD Ot Z87.59 PERSONAL HISTORY OF COMP OF PREG, CHLDBR 12/30/2016 LAYLA ZAPATA MD Ot Z90.710 ACQUIRED ABSENCE OF BOTH CERVIX AND UTER 12/30/2016 LAYLA ZAPATA MD Ot Z95.828 PRESENCE OF OTHER VASCULAR IMPLANTS AND 01/01/2017 LAYLA ZAPATA MD T Ot I10 ESSENTIAL (PRIMARY) HYPERTENSION 01/01/2017 LAYLA ZAPATA MD Ot M81.0 AGE-RELATED OSTEOPOROSIS W/O CURRENT PAT 01/01/2017 LAYLA ZAPATA MD Ot N39.0 URINARY TRACT INFECTION, SITE NOT SPECIF 01/01/2017 LAYLA ZAPATA MD Ot R00.2 PALPITATIONS 01/01/2017 LAYLA ZAPATA MD Ot Z86.718 PERSONAL HISTORY OF OTHER VENOUS THROMBO 01/01/2017 LAYLA ZAPATA MD, Ot Z87.59 PERSONAL HISTORY OF COMP OF PREG, CHLDBR 01/01/2017 LAYLA ZAPATA MD Ot Z90.710 ACQUIRED ABSENCE OF BOTH CERVIX AND UTER 01/01/2017 LAYLA ZAPATA MD Ot Z95.828 PRESENCE OF OTHER VASCULAR IMPLANTS AND 01/03/2017 LAYLA ZAPATA MD Ot I10 ESSENTIAL (PRIMARY) HYPERTENSION 01/03/2017 LAYLA ZAPATA MD, Ot M81.0 AGE-RELATED OSTEOPOROSIS W/O CURRENT PAT 01/03/2017 LAYLA ZAPATA MD, Ot N39.0 URINARY TRACT INFECTION, SITE NOT SPECIF 01/03/2017 LAYLA ZAPATA MD Ot R00.0 TACHYCARDIA, UNSPECIFIED 01/03/2017 LAYLA ZAPATA MD, Ot Z86.718 PERSONAL HISTORY OF OTHER VENOUS THROMBO 01/03/2017 LAYLA ZAPATA MD, Ot Z87.59 PERSONAL HISTORY OF COMP OF PREG, CHLDBR 01/03/2017 LAYLA ZAPATA MD Ot Z90.710 ACQUIRED ABSENCE OF BOTH CERVIX AND UTER 01/03/2017 LAYLA ZAPATA MD Ot Z95.828 PRESENCE OF OTHER VASCULAR IMPLANTS AND 02/05/2017 DAMI CARVER DO Ot R35.0 FREQUENCY OF MICTURITION 04/03/2017 KYM MCGRATH MD Ot Z09 ENCNTR FOR F/U EXAM AFT TRTMT FOR COND O 04/03/2017 KYM MCGRATH MD Ot Z87.440 PERSONAL HISTORY OF URINARY (TRACT) INFE 04/03/2017 KYM MCGRATH MD Ot Z95.828 PRESENCE OF OTHER VASCULAR IMPLANTS AND 08/18/2017 DAMI CARVER DO Ot 599.0 URIN TRACT INFECTION NOS 08/18/2017 BIRDIE GUTIERREZ, DEVAUGHN Lester Ot 724.6 DISORDERS OF SACRUM 08/18/2017 DAMI CARVER DO Ot 280.9 IRON DEFIC ANEMIA NOS 08/18/2017 DAMI CARVER DO Ot 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 08/18/2017 CARVERKATY BOSWELL DAMI Ot 356.9 IDIO PERIPH NEURPTHY NOS 08/18/2017 CARVER DO DAMI Ot 401.1 BENIGN HYPERTENSION 08/18/2017 CARVERKATY BOSWELL DAMI Ot V12.51 HX-VENOUS THROMBOSIS EMBOLISM 08/18/2017 CARVERKATY BOSWELL DAMI Ot V12.55 PERSONAL HISTORY OF PULMONARY EMBOLISM 08/18/2017 MEHUL BOSWELL DAMI Ot 461.3 AC SPHENOIDAL SINUSITIS 08/18/2017 Ot 280.9 IRON DEFIC ANEMIA NOS 08/18/2017 Ot 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 08/18/2017 Ot 356.9 IDIO PERIPH NEURPTHY NOS 08/18/2017 Ot 401.9 HYPERTENSION NOS 08/18/2017 Ot 783.1 ABNORMAL WEIGHT GAIN 08/18/2017 Ot 790.29 OTHER ABNORMAL GLUCOSE 08/18/2017 Ot V58.69 OTH MED,LT, CURRENT USE 08/18/2017 CARVERKATY BOSWELL DAMI Ot 280.9 IRON DEFIC ANEMIA NOS 08/18/2017 CARVER DO DAMI Ot 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 08/18/2017 CARVERKATY BOSWELL DAMI Ot 401.9 HYPERTENSION NOS 08/18/2017 CARVER DO DAMI Ot 783.1 ABNORMAL WEIGHT GAIN 08/18/2017 CARVERKATY BOSWELL DAMI Ot 790.29 OTHER ABNORMAL GLUCOSE 08/18/2017 CARVERKATY BOSWELL DAMI Ot V58.69 OTH MED,LT,CURRENT USE 08/18/2017 CARVERKATY BOSWELL DAMI Ot D50.9 IRON DEFICIENCY ANEMIA, UNSPECIFIED 08/18/2017 MEHUL BOSWELL DAMI Ot R73.9 HYPERGLYCEMIA, UNSPECIFIED 08/18/2017 MEHUL BOSWELL DAMI Ot Z00.00 ENCNTR FOR GENERAL ADULT MEDICAL EXAM W/ 08/18/2017 JIGAR ROSE DRIVER TRAINER Ot N30.01 ACUTE CYSTITIS WITH HEMATURIA 08/18/2017 MEHUL BOSWELL DAMI Ot R35.0 FREQUENCY OF MICTURITION 08/18/2017 RAMILA GUTIERREZ, KYM Lucio Ot Z09 ENCNTR FOR F/U EXAM AFT TRTMT FOR COND O 08/18/2017 KYM MCGRATH MD Ot Z87.440 PERSONAL HISTORY OF URINARY (TRACT) INFE 08/18/2017 RAMILA GUTIERREZ, KYM Lucio Ot Z95.828 PRESENCE OF OTHER VASCULAR IMPLANTS AND 11/21/2017 CARVER DO, DAMI Ot 599.0 URIN TRACT INFECTION NOS 11/21/2017 BIRDIE GUTIERREZ, DEVAUGHN Lester Ot 724.6 DISORDERS OF SACRUM 11/21/2017 CARVER DO, DAMI Ot 280.9 IRON DEFIC ANEMIA NOS 11/21/2017 CARVER DO, DAMI Ot 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 11/21/2017 CARVER DO, DAMI Ot 356.9 IDIO PERIPH NEURPTHY NOS 11/21/2017 CARVER DO, DAMI Ot 401.1 BENIGN HYPERTENSION 11/21/2017 CARVER DO, DAMI Ot V12.51 HX-VENOUS THROMBOSIS EMBOLISM 11/21/2017 MEHUL BOSWELL DAMI Ot V12.55 PERSONAL HISTORY OF PULMONARY EMBOLISM 11/21/2017 MEHUL DO, DAMI Ot 461.3 AC SPHENOIDAL SINUSITIS 11/21/2017 Ot 280.9 IRON DEFIC ANEMIA NOS 11/21/2017 Ot 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 11/21/2017 Ot 356.9 IDIO PERIPH NEURPTHY NOS 11/21/2017 Ot 401.9 HYPERTENSION NOS 11/21/2017 Ot 783.1 ABNORMAL WEIGHT GAIN 11/21/2017 Ot 790.29 OTHER ABNORMAL GLUCOSE 11/21/2017 Ot V58.69 OTH MED,LT, CURRENT USE 11/21/2017 CARVER DO, DAMI Ot 280.9 IRON DEFIC ANEMIA NOS 11/21/2017 CARVER DO, DAMI Ot 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 11/21/2017 CARVER DO, DAMI Ot 401.9 HYPERTENSION NOS 11/21/2017 CARVER DO, DAMI Ot 783.1 ABNORMAL WEIGHT GAIN 11/21/2017 CARVER DO, DAMI Ot 790.29 OTHER ABNORMAL GLUCOSE 11/21/2017 CARVER DO, DAMI Ot V58.69 OTH MED,LT,CURRENT USE 11/21/2017 CARVER DO, DAMI Ot D50.9 IRON DEFICIENCY ANEMIA, UNSPECIFIED 11/21/2017 CARVER DO, DAMI Ot R73.9 HYPERGLYCEMIA, UNSPECIFIED 11/21/2017 CARVER DO, DAMI Ot Z00.00 ENCNTR FOR GENERAL ADULT MEDICAL EXAM W/ 11/21/2017 MILTON, JIGAR R DRIVER TRAINER Ot N30.01 ACUTE CYSTITIS WITH HEMATURIA 11/21/2017 DAMI CARVER DO Ot R35.0 FREQUENCY OF MICTURITION 11/21/2017 KYM MCGRATH MD, Ot Z09 ENCNTR FOR F/U EXAM AFT TRTMT FOR COND O 11/21/2017 KYM MCGRATH MD Ot Z87.440 PERSONAL HISTORY OF URINARY (TRACT) INFE 11/21/2017 KYM MCGRATH MD, Ot Z95.828 PRESENCE OF OTHER VASCULAR IMPLANTS AND Procedures There is no data. Results Test Result Range Bacterial urine culture - 09/14/16 12:40 Bacterial urine culture [id number] NRG COLONY COUNT >100,000/ML NRG FTX;REPORTABLE STUDIES TO FOLLOW NRG FREE TEXT ENTRY 2 (NOT ENTEROCOCCUS) NRG Complete blood count (CBC) with automated white blood cell (WBC) differential - 12/28/16 05:18 Blood leukocytes automated count (number/volume) 7.1 10*3/uL 4.3-11.0 Blood erythrocytes automated count (number/volume) 5.24 10*6/uL 4.35-5.85 Venous blood hemoglobin measurement (mass/volume) 13.7 g/dL 11.5-16.0 Blood hematocrit (volume fraction) 42 % 35-52 Automated erythrocyte mean corpuscular volume 81 [foz_us] 80-99 Automated erythrocyte mean corpuscular hemoglobin (mass per erythrocyte) 26 pg 25-34 Automated erythrocyte mean corpuscular hemoglobin concentration measurement ( mass/volume) 33 g/dL 32-36 Automated erythrocyte distribution width ratio 14.8 % 10.0-14.5 Automated blood platelet count (count/volume) 242 10*3/uL 130-400 Automated blood platelet mean volume measurement 10.7 [foz_us] 7.4-10.4 Automated blood neutrophils/100 leukocytes 58 % 42-75 Automated blood lymphocytes/100 leukocytes 27 % 12-44 Blood monocytes/100 leukocytes 8 % 0-12 Automated blood eosinophils/100 leukocytes 5 % 0-10 Automated blood basophils/100 leukocytes 1 % 0-10 Blood neutrophils automated count (number/volume) 4.1 10*3 1.8-7.8 Blood lymphocytes automated count (number/volume) 1.9 10*3 1.0-4.0 Blood monocytes automated count (number/volume) 0.6 10*3 0.0-1.0 Automated eosinophil count 0.4 10*3/uL 0.0-0.3 Automated blood basophil count (count/volume) 0.1 10*3/uL 0.0-0.1 Whole blood basic metabolic panel - 12/28/16 05:18 Serum or plasma sodium measurement (moles/volume) 142 mmol/L 135-145 Serum or plasma potassium measurement (moles/volume) 4.0 mmol/L 3.6-5.0 Serum or plasma chloride measurement (moles/volume) 110 mmol/L 98-107 Carbon dioxide 19 mmol/L 21-32 Serum or plasma anion gap determination (moles/volume) 13 mmol/L 5-14 Serum or plasma urea nitrogen measurement (mass/volume) 16 mg/dL 7-18 Serum or plasma creatinine measurement (mass/volume) 0.80 mg/dL 0.60-1.30 Serum or plasma urea nitrogen/creatinine mass ratio 20 NRG Serum or plasma creatinine measurement with calculation of estimated glomerular filtration rate > NRG Serum or plasma glucose measurement (mass/volume) 109 mg/dL 70-105 Serum or plasma calcium measurement (mass/volume) 9.1 mg/dL 8.5-10.1 Magnesium - 12/28/16 05:18 Magnesium 2.3 mg/dL 1.8-2.4 Serum or plasma troponin i.cardiac measurement (mass/volume) - 12/28/16 05:18 Serum or plasma troponin i.cardiac measurement (mass/volume) < ng/ mL <0.30 Serum or plasma thyrotropin measurement by detection limit <=0.05 miu/l (units/ volume) - 12/28/16 05:18 Serum or plasma thyrotropin measurement by detection limit <=0.05 miu/l (units/ volume) 3.11 u[iU]/mL 0.35-4.94 Complete urinalysis with reflex to culture - 12/28/16 06:05 Urine color determination YELLOW NRG Urine clarity determination SLIGHTLY CLOUDY NRG Urine pH measurement by test strip 6 5-9 Specific gravity of urine by test strip 1.015 1.016- 1.022 Urine protein assay by test strip, semi-quantitative NEGATIVE NEGATIVE Urine glucose detection by automated test strip NEGATIVE NEGATIVE Erythrocytes detection in urine sediment by light microscopy 2+ NEGATIVE Urine ketones detection by automated test strip NEGATIVE NEGATIVE Urine nitrite detection by test strip POSITIVE NEGATIVE Urine total bilirubin detection by test strip NEGATIVE NEGATIVE Urine urobilinogen measurement by automated test strip (mass/volume) NORMAL NORMAL Urine leukocyte esterase detection by dipstick 2+ NEGATIVE Automated urine sediment erythrocyte count by microscopy (number/high power field) NONE NRG Automated urine sediment leukocyte count by microscopy (number/high power field ) [HPF] NRG Bacteria detection in urine sediment by light microscopy LARGE NRG Squamous epithelial cells detection in urine sediment by light microscopy 2-5 NRG Crystals detection in urine sediment by light microscopy NONE NRG Casts detection in urine sediment by light microscopy NONE NRG Mucus detection in urine sediment by light microscopy NEGATIVE NRG Complete urinalysis with reflex to culture YES NRG Bacterial urine culture - 12/28/16 06:05 Bacterial urine culture [id number] NRG COLONY COUNT >100,000/ML NRG FTX;REPORTABLE SENSITIVITY REPORTED AT 0728, 12-30-16 NRG URINE CULTURE RESULTS PLUS NRG Bacterial susceptibility panel - 12/28/16 06:05 Gentamicin susceptibility test by minimum inhibitory concentration < = NRG Trimethoprim/sulfamethoxazole susceptibility test by minimum inhibitoryconcentration >= NRG Ampicillin susceptibility test by minimum inhibitory concentration > = NRG Tobramycin susceptibility test by minimum inhibitory concentration > = NRG Cefazolin susceptibility test by minimum inhibitory concentration 8 NRG Ceftriaxone susceptibility test by minimum inhibitory concentration <= NRG Ampicillin/sulbactam susceptibility test by minimum inhibitory concentration >= NRG Piperacillin/tazobactam susceptibility test by minimum inhibitory concentration 8 NRG Ciprofloxacin susceptibility test by minimum inhibitory concentration >= NRG Meropenem susceptibility test by minimum inhibitory concentration < = NRG Nitrofurantoin susceptibility test by minimum inhibitory concentration <= NRG Aztreonam susceptibility test by minimum inhibitory concentration < = NRG Extended spectrum beta lactamase (ESBL) producing bacteria susceptibility test by minimum inhibitory concentration - NR Complete blood count (CBC) with automated white blood cell (WBC) differential - 12/30/16 09:55 Blood leukocytes automated count (number/volume) 6.7 10*3/uL 4.3-11.0 Blood erythrocytes automated count (number/volume) 5.50 10*6/uL 4.35-5.85 Venous blood hemoglobin measurement (mass/volume) 14.4 g/dL 11.5-16.0 Blood hematocrit (volume fraction) 44 % 35-52 Automated erythrocyte mean corpuscular volume 79 [foz_us] 80-99 Automated erythrocyte mean corpuscular hemoglobin (mass per erythrocyte) 26 pg 25-34 Automated erythrocyte mean corpuscular hemoglobin concentration measurement ( mass/volume) 33 g/dL 32-36 Automated erythrocyte distribution width ratio 14.9 % 10.0-14.5 Automated blood platelet count (count/volume) 273 10*3/uL 130-400 Automated blood platelet mean volume measurement 10.7 [foz_us] 7.4-10.4 Automated blood neutrophils/100 leukocytes 69 % 42-75 Automated blood lymphocytes/100 leukocytes 21 % 12-44 Blood monocytes/100 leukocytes 6 % 0-12 Automated blood eosinophils/100 leukocytes 2 % 0-10 Automated blood basophils/100 leukocytes 1 % 0-10 Blood neutrophils automated count (number/volume) 4.6 10*3 1.8-7.8 Blood lymphocytes automated count (number/volume) 1.4 10*3 1.0-4.0 Blood monocytes automated count (number/volume) 0.4 10*3 0.0-1.0 Automated eosinophil count 0.1 10*3/uL 0.0-0.3 Automated blood basophil count (count/volume) 0.1 10*3/uL 0.0-0.1 Fibrin D-dimer FEU measurement in platelet poor plasma (mass/volume) - 09:55 Fibrin D-dimer FEU measurement in platelet poor plasma (mass/volume) 0.42 ug/mL 0.00-0.49 Comprehensive metabolic panel - 12/30/16 09:55 Serum or plasma sodium measurement (moles/volume) 139 mmol/L 135-145 Serum or plasma potassium measurement (moles/volume) 4.2 mmol/L 3.6-5.0 Serum or plasma chloride measurement (moles/volume) 107 mmol/L 98-107 Carbon dioxide 22 mmol/L 21-32 Serum or plasma anion gap determination (moles/volume) 10 mmol/L 5-14 Serum or plasma urea nitrogen measurement (mass/volume) 16 mg/dL 7-18 Serum or plasma creatinine measurement (mass/volume) 0.91 mg/dL 0.60-1.30 Serum or plasma urea nitrogen/creatinine mass ratio 18 NRG Serum or plasma creatinine measurement with calculation of estimated glomerular filtration rate > NRG Serum or plasma glucose measurement (mass/volume) 101 mg/dL 70-105 Serum or plasma calcium measurement (mass/volume) 9.4 mg/dL 8.5-10.1 Serum or plasma total bilirubin measurement (mass/volume) 0.7 mg/dL 0.1-1.0 Serum or plasma alkaline phosphatase measurement (enzymatic activity/volume) 131 U/L 40-136 Serum or plasma aspartate aminotransferase measurement (enzymatic activity/ volume) 20 U/L 5-34 Serum or plasma alanine aminotransferase measurement (enzymatic activity/volume ) 21 U/L 0-55 Serum or plasma protein measurement (mass/volume) 7.8 g/dL 6.4-8.2 Serum or plasma albumin measurement (mass/volume) 4.4 g/dL 3.2-4.5 Magnesium - 12/30/16 09:55 Magnesium 2.1 mg/dL 1.8-2.4 Serum or plasma troponin i.cardiac measurement (mass/volume) - 12/30/16 09:55 Serum or plasma troponin i.cardiac measurement (mass/volume) < ng/ mL <0.30 Complete urinalysis with reflex to culture - 12/30/16 11:23 Urine color determination YELLOW NRG Urine clarity determination CLEAR NRG Urine pH measurement by test strip 6 5-9 Specific gravity of urine by test strip 1.015 1.016- 1.022 Urine protein assay by test strip, semi-quantitative NEGATIVE NEGATIVE Urine glucose detection by automated test strip NEGATIVE NEGATIVE Erythrocytes detection in urine sediment by light microscopy 1+ NEGATIVE Urine ketones detection by automated test strip NEGATIVE NEGATIVE Urine nitrite detection by test strip NEGATIVE NEGATIVE Urine total bilirubin detection by test strip NEGATIVE NEGATIVE Urine urobilinogen measurement by automated test strip (mass/volume) NORMAL NORMAL Urine leukocyte esterase detection by dipstick NEGATIVE NEGATIVE Automated urine sediment erythrocyte count by microscopy (number/high power field) RARE NRG Automated urine sediment leukocyte count by microscopy (number/high power field ) [HPF] NRG Bacteria detection in urine sediment by light microscopy TRACE NRG Squamous epithelial cells detection in urine sediment by light microscopy 5-10 NRG Crystals detection in urine sediment by light microscopy NONE NRG Casts detection in urine sediment by light microscopy NONE NRG Mucus detection in urine sediment by light microscopy NO NRG Complete urinalysis with reflex to culture NO NRG Encounters ACCT No. Visit Date/Time Discharge Status Pt. Type Provider Facility Loc./Unit Complaint [id number] 03/25/2017 14:02:00 03/25/2017 23:59:59 CLS Outpatient KYM MCGRATH MD [facility] RAD H/O UTIS [id number] 01/24/2017 17:53:00 01/24/2017 23:59:59 CLS Outpatient CARVER DO, DAMI [facility] LAB R35.0 [id number] 12/30/2016 09:31:00 12/30/2016 23:59:59 CLS Emergency JODI GUTIERREZ, LAYLA Marvin [facility] ER HEART RACING, HIGH BLOOD PRESSURE [id number] 12/28/2016 04:49:00 12/28/2016 07:18:00 DIS Emergency JODI GUTIERREZ, LAYLA Marvin [facility] ER HIGH HEART RATE [id number] 2016 14:23:00 2016 23:59:59 CLS Outpatient JIGAR ROSE APRN [facility] LAB [id number] 05/13/2015 12:24:00 05/13/2015 23:59:59 CLS Outpatient CARVER DO, DAMI [facility] LAB HYPERGLYCEMIA IRON DEFIC ANEMIA [id number] 12/25/2014 10:13:00 12/25/2014 23:59:59 CLS Outpatient CARVER DO, DAMI [facility] LAB CBC W/ DIFF,CMP,LIPID, HBA1C,FERRETIN,IRON,TIBC [id number] 11/13/2014 17:32:00 11/13/2014 19:31:00 DIS Emergency FLETCHER ODELL [facility] ER RIGHT LEG PAIN/POSS BLOOD CLOT [id number] 05/09/2014 14:44:00 05/09/2014 23:59:59 CLS Outpatient MEHUL DO, DAMI [facility] RAD SINUSITIS [id number] 03/15/2014 15:52:00 03/15/2014 23:59:59 CLS Outpatient CARVER DO, DAMI [facility] LAB HEALTH SCREENING,ANEMIA, HTN,.DVT [id number] 01/21/2014 09:27:00 01/21/2014 10:35:00 DIS Outpatient DEVAUGHN PACKER MD [facility] CARD SACROILIAC JOINT DISFUNCTION [id number] 01/19/2014 15:01:00 01/19/2014 23:59:59 CLS Outpatient DEVAUGHN PACKER MD [facility] RAD DISORDER OF SI JOINT [id number] 12/30/2013 17:45:00 12/30/2013 23:59:59 CLS Outpatient DAMI CARVER DO [facility] LAB UTI [id number] 11/29/2012 13:11:00 11/29/2012 23:59:59 CLS Outpatient [id number] 11/13/2014 17:33:00 Document Registration [id number] 11/13/2014 17:33:00 Document Registration [id number] 11/13/2014 17:32:00 Document Registration [id number] 11/13/2014 17:32:00 Document Registration [id number] 07/18/2014 09:03:00 Document Registration [id number] 07/15/2011 17:57:00 Document Registration [id number] 05/07/2010 09:58:00 Document Registration [id number] 04/17/2010 11:09:00 Document Registration [id number] 04/12/2010 12:55:00 Document Registration
== END 2017-12-05 22:05 | disposition home or self-care (01) ==
LOC: EDUNIT# 20:28 → ER 20:30
DX: R07.89 Other chest pain (principal); E03.9 Hypothyroidism, unspecified; I10 Essential (primary) hypertension; M81.0 Age-related osteoporosis without current pathological fracture; Z95.828 Presence of other vascular implants and grafts; Z87.59 Personal history of other complications of pregnancy, childbirth and the puerperium; Z90.710 Acquired absence of both cervix and uterus; Z86.718 Personal history of other venous thrombosis and embolism
CPT/HCPCS: 36415; 71045; 80053; 81000; 83735; 83874; 84484; 85025; 85610; 85730; 93005